=== PATIENT | male | born 1995 | race Caucasian/White ===

== ENCOUNTER 2025-04-27 14:46 | Inpatient (IN) | payer OTHER, SELFPAY ==
--- OUTSIDE RECORDS SUMMARY | 2025-04-25 18:23 | XMS_ITS | Encounter Summary ---
Author Organization Thu Mendoza danial Address [address] [place] [id number] Care Team Providers Care Net Sql Developer Name Role Phone Pharmacy, [facility] & Primary Care Provider Reason for Visit * Reason Comments Behavioral Health * Auth/Cert (Routine) Specialty Diagnoses / Procedures Referred By Contnorm t Referred To Contact Diagnoses Major depressive disorder, single episode, severe with psychotic features Alcohol use, unspecified with withdrawal, unspecified Procedures ADMIT TO OBSERVATION Referral ID Status Reason Start Date Expiration Date Visits Re quested Visits Authorized [id number] 1 1 Encounter Details Date Type Department Care Team (Late st Contact Info) Description 04/25/2025 6:23 PM EST - 04/27/2025 1:18 PM EST Hospital Encounter [facility] Emergency Department [address] [place] [address] Vlad Ramsay MD [address] [facility], [address] [place] [id number] Deng Brown MD [address] [place] [address] Elaina Jaimes MD [facility], [address] [place] [id number] Darin Banks MD [address] [place] [address] eDng Newman MD [address] [place] [address] Stevan Aguayo MD [address] [place] [address] Solomon Rizo MD [address] [place] [address] Current severe episode of major depressive disorder with psychotic features without prior episode ([facility]) [F32.3] (Primary Dx); Alcohol use, unspecified with withdrawal, unspecified ([facility]) [F10.939]; Depression, unspecified depression type Discharge Disposition: Admitted as an Inpatient Social History Tobacco Use Types Packs/Day Years Used Date Smoking Tobacco: Every Day Cigarettes Alcohol Use Standard Drinks/Week Comments Yes 0 (1 standard drink = 0.6 oz pur e alcohol) 1 gallon vodka/day [facility] Utilities Answer Date Recorded In the past 12 months has th e [employer], gas, oil, or water [employer] threatened to shut off services in your home? No 05/12/2024 Humiliation, Afraid, Rape, and Kick questionnair e Answer Date Recorded Within the last year, have y ou been afraid of your partner or ex-partner? No 05/12/2024 Emotionally Abused Not on file 05/12/2024 Physically Abused Not on file 05/12/2024 Sexually Abused Not on file 05/12/2024 Overall Financial Resource Strain (CARDIA) Answe r Date Recorded How hard is it for you to pa y for the very basics like food, housing, medical care, and heating? Somewhat hard 05/12/2024 Hunger Vital Sign Answer Date Recorded Within the past 12 months, y ou worried that your food would run out before you got the money to buy more. Never true 05/12/20 24 Ran Out of Food in the Last Year Not on file 05/12/2024 PRAPARE - Transportation Answer Date Re corded In the past 12 months, has l ack of transportation kept you from medical appointments or from getting medications? No 04/24 In the past 12 months, has l ack of transportation kept you from meetings, work, or from getting things needed for daily living? No 05/12/2024 Housing Stability Vital Sign Answer Holger e Recorded In the last 12 months, was t here a time when you were not able to pay the mortgage or rent on time? No 05/12/2024 Number of Times Moved in the Last Year Not on fi le 05/12/2024 At any time in the past 12 m [facility], were you homeless or living in a alf (including now)? No 05/12/2024 Food Insecurity Answer Date Recorded Within the past 12 months, y ou worried that your food would run out before you got the money to buy more. Never true 05/12/20 24 Ran Out of Food in the Last Year Not on file 05/12/2024 Intimate Partner Violence Answer Date R ecorded Emotionally Abused Not on file 05/12/2024 Within the last year, have y ou been afraid of your partner or ex-partner? No 05/12/2024 Physically Abused Not on file 05/12/2024 Sexually Abused Not on file 05/12/2024 Housing Stability Answer Date Recorded Unstable Housing in the Last Year Not on file 05/12/2024 In the last 12 months, was t here a time when you were not able to pay the mortgage or rent on time? No 05/12/2024 [address] Lived in the Last Year Not on f ile 05/12/2024 AUDIT C Answer Date Recorded How often have you had a dri nk containing alcohol, in the past year? 4 04/26/2025 How many standard drinks con taining alcohol have you had on a typical day when you are drinking, in the past year? 4 1 06/26/2024 How often have you had six o r more drinks on one occasion, in the past year? 4 04/26/2025 Sex and Gender Information Value Date Recorded Sex Assigned at Male 04/21/2024 7:04 PM EDT Legal Sex Male 1:59 AM EST Gender Identity Male 07/23/2023 1:59 AM EST Sexual Orientation Not on file Occupation Industry Job Start Date Job End Date Unemployed Not on file Not on file Not on file documented as of this encounter Last Filed Vital Signs Vital Sign Reading Time Taken Comments Blood Pressure 125/74 04/27/2025 12:32 PM EST Pulse 73 04/27/2025 12:32 PM EST Temperature 36.5 C (97.7 F) 04/27/2025 12:32 PM EST Respiratory Rate 18 04/27/2025 12:32 PM EST Oxygen Saturation 99% 04/27/2025 12:32 PM EST Inhaled Oxygen Concentration - - Weight - - Height - - Body Mass Index - - documented in this encounter Functional Status * Are you deaf or do you have serious difficulty hearing? Answer Date of Assessment Author No 04/25/2025 6:13 PM EST Strauss, Gis el * Are you blind or do you have serious difficulty seeing, even when wearing glasses? Answer Date of Assessment Author No 04/25/2025 6:13 PM EST Strauss, Gis el * Do you have serious difficulty walking or climbing stairs? Answer Date of Assessment Author No 04/25/2025 6:13 PM EST Staruss, Gis el * Do you have difficulty dressing or bathing? Answer Date of Assessment Author No 04/25/2025 6:13 PM EST Strauss, Gis el * Because of a physical, mental, or emotional condition, do you have difficulty doing errands alone such as visiting the doctor? Answer Date of Assessment Author No 04/25/2025 6:13 PM EST Strauss, Gis el documented as of this encounter Mental Status * Because of a physical, mental, or emotional condition, do you have serious difficulty concentrating, remembering, or making decisions? Answer Entry Date Author No 04/25/2025 6:13 PM EST Strauss, Gis el documented in this encounter Medications at Time of Discharge baclofen (LIORESAL) 10 MG tablet 10 MG PO BID 02/23/2024 cloNIDine (CATAPRES) 0.2 MG tablet 0.2 MG PO PRN PRN Agitation 02/23/2024 levETIRAcetam (KEPPRA) 500 MG tablet 500 MG PO BID 02/23/2024 LORazepam (ATIVAN) 1 MG tablet Take 1 tablet (1 mg total) by mouth every 8 hours as needed for anxiety. 03/22/2025 nicotine (NICODERM CQ) 21 mg/[address] 1 patch on the skin in the morning. 03/03/2024 nicotine polacrilex (NICORETTE) 2 mg gum Apply 1 each (2 mg total) to the mouth or throat as needed for smoking cessation. 04/16/2024 OXcarbazepine (TRILEPTAL) 300 MG tablet Take 1 tablet (300 mg total) by mouth in the morning and 1 tablet (300 mg total) before bedtime. TAKE 1 TAB TWICE A DAY FOR SEIZURE. 04/27/2024 PARoxetine (PAXIL) 10 MG tablet Take 3 tablets (30 mg total) by mouth every morning. 04/10/2025 QUEtiapine (SEROquel) 100 MG tablet 100 MG PO TID 02/23/2024 QUEtiapine (SEROquel) 400 MG tablet 400 MG PO QHS 02/23/2024 SUMAtriptan (IMITREX) 50 MG tablet Take 1 tablet (50 mg total) by mouth as needed in the morning and 1 tablet (50 mg total) as needed in the evening. 03/03/2024 topiramate (TOPAMAX) 25 MG capsule Take 1 capsule (25 mg total) by mouth in the morning and 1 capsule (25 mg total) before bedtime. amitriptyline (ELAVIL) 10 mg tablet Take 1 tablet (10 mg total) by mouth at bedtime. amoxicillin (AMOXIL) 500 MG capsule Take 1 capsule (500 mg total) by mouth in the morning and 1 capsule (500 mg total) in the evening and 1 capsule (500 mg total) before bedtime. chlorhexidine (PERIDEX) 0.12 % solution Apply 15 mL to the mouth or throat. TAKE 15 MLS MUCOUS MEMBRANE TWICE A DAY FOR DENTAL PAIN (DO NOT SWALLOW) 04/21/2024 clonazePAM (KlonoPIN) 1 MG tablet 04/15/2024 gabapentin (NEURONTIN) 400 MG capsule 400 MG PO TID 02/23/2024 metoprolol ER (TOPROL-XL) 50 MG 24 hr tablet Take 1 tablet (50 mg total) by mouth in the morning. 03/23/2024 metroNIDAZOLE (FLAGYL) 500 MG tablet Take 1 tablet (500 mg total) by mouth 3 times a day. 03/03/2024 naproxen (EC NAPROSYN) 500 MG EC tablet Take 1 tablet (500 mg total) by mouth 2 times a day with breakfast & dinner. 20 tablet 04/25/2024 oxyCODONE (ROXICODONE) 10 MG Tab Take 1 tablet (10 mg total) by mouth. TAKE 2 TABLETS (20 MG TOTAL) BY MOUTH EVERY 4 (FOUR) HOURS NEEDED. PARTIAL FILL OK 04/24/2024 sulfamethoxazole -trimethoprim (BACTRIM DS) 800-160 mg per tablet Take 1 tablet (160 mg of trimethoprim total) by mouth every morning & every evening. TAKE 1 TABLET BY MOUTH TWICE A DAY FOR 6 DAYS ORAL INFECTION 02/05/2024 traMADoL (ULTRAM) 50 mg tablet Take 1 tablet (50 mg total) by mouth. TAKE 1 TABLET BY MOUTH THREE TIMES A DAY NEEDED FOR PAIN FOR SEVERE TOOTH PAIN 02/07/2024 traZODone (DESYREL) 50 MG tablet Take 1 tablet (50 mg total) by mouth at bedtime. documented as of this encounter Progress Notes * Nicholas Grant - 04/27/2025 12:05 PM EST SOCIAL WORK - BRIEF INTERVENTION NOTE START Assessment - Alcohol Use Disorder Patient: Bimal Lobo : 1995 Age: 29 y.o. Gender: male Relationship status: unknown Income Source: Insurance: Payor: [employer] / Plan[place] / Product Type: Other / Income or financial concerns: Location: Al ed Admit Date: 04/25/2025 Inpatient Status Admit Date: N/A Referral Information Primary Language: Albanian [22] Reason for Admission/Visit: psych evaluation Date of Visit: 04/25/2025 Advanced Directives: Patient Contacts Name Legal Rel Relationship Phone Active @ADVDIR@ DIAGNOSIS: Diagnosis: MH with PSUD Other Relevant Medical Concerns: N/A CASE SUMMARY/UPDATE: Patient referred to cross country/track and field coach by DINESH. Patient has a history of PSUD and is currently on a section 12 awaiting placement. Grinding And Polishing Laborer met with patient to discuss current situation and how they could help in the future. Patient open to being connected to [facility] after inpatient. Patient open to continuum of care by pairing sober living with PHP/IOP after CSS stay. Patient has coaches contact po [facility] advocate to help with continuum of care options post discharge. IDENTIFIED NEEDS AND INTERVENTIONS: Identified Needs Interventions 1 Homeless [place] CSS/sober living 2 MH/PSUD PHP/IOP 3 4 5 Assessment data obtained from: patrient and patient chart Patient received a brief intervention prior to discharge with the following elements: Feedback concerning the quantity and frequency of the patient's alcohol consumption compared to national norms A discussion about the negative physical, emotional and occupational consequences A discussion of the overall severity of the problem Low risk drinking equals: Women (and men over 65): No more than 3 drinks on any single day and no more than 7 drinks/week Men under 65 years: No more than 4 drinks on any single day and no more than 14 drinks/week Patient's response to the brief intervention: Accepting referrals to treatment Referral to Treatment: Andrey Messer Referral(s) made prior to discharge for group counseling, individual counseling, or appointment with personal physician, psychiatrist, psychologist, addiction counselor to: Patient to follow up with this lead technical writer for continuum of care options (Nicholas YARBROUGH [phone]) or (Balwinder Thomas [phone]). Cosigned by Marion Munoz [facility] at 04/27/2025 1:07 PM EST * Wes Velazco - 04/27/2025 10:49 AM EST Behavioral Health Crisis Consult- Contact Note Patient: Bimal Lobo : 1995 Admit Date: 04/25/2025 Date of Consult: 04/27/2025 Time of Consult: 10:49 AM Narrative: Patient: Bimal Lobo Accepting Facility: [facility] Accepting Facility Address: [address] [place] [address] Accepting MD: Dr Stevan Bennett Arrival Time: 2pm arrival Nurse to Nurse Report: they are calling for N2N Other Labs or Needs: N/A HCP/Guardian (if applicable): N/A Reason for Section 12: SI Information Given To: Via secure chat * Rachel Todd - 04/26/2025 10:04 AM EST Behavioral Health Crisis Consult - Follow Up Patient: Bimal Lobo : 1995 Admit Date: 04/25/2025 Date of Consult: 04/26/2025 Time of Consult: 10:04 AM CC: Chief Complaint Patient presents with Behavioral Health Chart Reviewed, case discussed with team and staff. Patient reports I have a lot going on Updates: Psych consult outcome/psych medications: Pt required IM medication on 04/25 2mg ativan 7:21pm and 5mg haldol 8:33pm Collateral Contact: Yes Medical/Psychiatric/Substance/Social/Family History: Histories from previous consult note of 04/25 remain unchanged, except as note in HPI. Current Medications: Scheduled Medications[1] Current PRN: PRN Medications[2] Allergies: Patient has no known allergies. Physical Exam: Patient Vitals for the past 24 hrs: BP Temp Temp src Pulse Resp SpO2 04/26/25 0847 130/77 97.9 ??F (36.6 ??C) -- 79 -- -- 04/26/25 0845 130/77 97.9 ??F (36.6 ??C) Oral 79 18 98 % 04/26/25 0607 138/72 97.3 ??F (36.3 ??C) Temporal 51 16 98 % 04/25/25 2320 129/68 97.7 ??F (36.5 ??C) Temporal 89 16 95 % Mental Status Exam: Mental Status Exam General Appearance: Appears stated age and well-developed. Disheveled and moderate distress. Level of Consciousness: Alert. Orientation: Oriented to person, place, time and situation. Attitude and Behavior: Guarded. Eye Contact: Eye contact intermittent. Psychomotor Activity: Restless. Speech: Normal rate, volume, rhythm and coherence. Language: Normal. Mood: Patient description of mood: bad. Affect: Flat. Thought Process and Associations: Linear and logical. Thought Content: Positive for suicidal ideation. No self-injurious ideation, no homicidal ideation and not actively hallucinating. No delusions and no paranoia. Attention Span: Appropriate. Memory: Grossly intact. Fund of Knowledge: Normal. Cognition: Normal. Insight: Poor. Minimizing present. Judgment: Poor and resists help despite evidence of mental illness. Labs, Imaging & Other Studies: Laboratory: Recent lab results have been reviewed and are notable for Results for orders placed or performed during the hospital encounter of 04/25/25 (from the past 24 hours) Basic Metabolic Panel Result Value Ref Range Sodium 141 136 - 145 mmol/L Potassium 3.9 3.5 - 5.4 mmol/L Chloride 108 (H) 98 - 107 mmol/L Total CO2/Bicarbonate 19 (L) 22 - 32 mmol/L Anion Gap BUN 12 6 - 20 mg/dL Creatinine, Blood 0.96 0.70 - 1.20 mg/dL Glucose, Blood 97 70 - 115 mg/dL Calcium 8.6 8.5 - 10.6 mg/dL Estimated GFR(CKD-EPI) 110 mL/min/BSA Plasma Toxicology Screen Result Value Ref Range Acetaminophen Result,Blood <15 <30 ug/mL Alcohol 90 (H) <10 mg/dL Salicylate Level, Blood <1 (L) 3 - 20 mg/dL CBC and Differential Result Value Ref Range WBC 11.59 (H) 4.00 - 10.00 K/uL RBC 4.61 4.60 - 6.10 M/uL Hemoglobin 14.6 13.7 - 17.5 g/dL Hematocrit 41.8 40.0 - 51.0 % MCH 31.7 26.0 - 32.0 pg MCHC 34.9 30.5 - 35.8 g/dL MCV 91 82 - 98 fL RDW 12.0 10.5 - 15.5 % RDW-SD 39.8 35.1 - 46.3 fL Platelet Count 296 150 - 400 K/uL MPV 8.6 8.3 - 12.4 fL Neutrophil 73.1 (H) 34.0 - 71.0 % Lymphocyte 17.4 (L) 19.0 - 53.0 % Monocyte 7.9 5.0 - 13.0 % Eosinophil 0.7 (L) 1.0 - 7.0 % Basophil 0.3 0.0 - 1.0 % Immature Granulocyte ([place], Myelo, Promyelocyte) 0.6 0.0 - 2.0 % Absolute Neutrophil Count 8.48 (H) 1.60 - 6.10 K/uL Absolute Immature Granulocyte ([place], Myelo, Promyelocyte) 0.07 0.00 - 0.80 K/uL Absolute Lymphocyte Count 2.02 1.20 - 3.70 K/uL Absolute Monocyte Count 0.91 (H) 0.20 - 0.80 K/uL Absolute Eosinophil Count 0.08 0.04 - 0.54 K/uL Absolute Basophil Count 0.03 0.01 - 0.08 K/uL Drug Screen, Urine Result Value Ref Range Amphetamines Screen, Urine Not Detected Not Detected Barbiturates Screen, Urine Not Detected Not Detected Benzodiazepine Screen, Urine Detected (A) Not Detected Cannabinoids Screen, Urine Detected (A) Not Detected Cocaine Metabolite Screen, Urine Detected (A) Not Detected MDMA Urine Not Detected Not Detected Opiates Screen, Urine Not Detected Not Detected Oxycodone Screen, Urine Not Detected Not Detected Phencyclidine Screen, Urine Not Detected Not Detected Propoxyphene Screen, Urine Not Detected Not Detected Tricyclics Screen Not Detected Not Detected Drug Screen QC Acceptable Acceptable EKG: No studies were reviewed. C-SSRS: [place] Suicide Severity Rating Scale (C-SSRS) Since Last Contact Screener 1) Have you wished you were or wished you could go to sleep and not wake up? (Since Last Contact): Yes 2) Have you actually had any thoughts about killing yourself? (Since Last Contact): Yes 3) Have you been thinking about how you might do this? (Since Last Contact): Yes 4) Have you had these thoughts and had some intention of acting on them? (Since Last Contact): No 5) Have you started to work out or worked out the details of how to kill yourself? Did you intend to carry out this plan? (Since Last Contact): No 6) Have you done anything, started to do anything, or prepared to do anything to end your life? (Since Last Contact): No 6b.) If 'Yes', was it within the past 3 months?: No C-SSRS Risk Level (Since Last Contact Screener): Moderate Risk (04/26/25 0958 : Rachel Todd) Assessment: Patient is a 29 y.o. male with past medical and psychiatric history as above now presents with behavioral control this morning, agreeable to inpatient level of care. Yesterday pt exhibited episode ofescalation around 7:00pm, reports he was trying to go to the bathroom to which security asked him where he was going. Reports he became frustrated with security challenging him about wether he could leave. He reports ongoing suicidal ideation at this time, reports he feels safe in the hospital and has not acted on this. He reports this has been ongoing for the past couple weeks. States it exacerbated yesterday when he left his Mother's home. He reports taking more than prescribed klonopin last night prior to arrival to try to help deal with my withdrawal . He reports his last drink was last night. Pt is currently on CIWA, accepted PO valium 5mg for withdrawal symptoms. The patient is guarded with history, per chart review history of inpatient admissions, detox admissions, suicidal ideation and alcohol use. Pt with history of polysubstance use - marijuana, crack/cocaine. . Pt notes stressors including that he is homeless, his Mother is ill and is estranged from other social supports in his life. Pt reports history of trauma- stating that he witnessed his Mother using substances throughout her life and is now ill. Pt also reports family hx of mental health/substance use and overdose. The patient is unable or unwilling to engage in safety planning at this time. He is focused on helplessness related to physical symptoms and feels unable to continue speaking with this lead technical writer. Pt agreeable to speak with staff if he needs something to prevent further restraint/ dysregulation, Recommendations: Pt continues to meet criteria for Section 12/IPLOC for further safety, stabilization, medication management and step down planning. Requested LOC: IPLOC / Section 12 Barriers to placement/Specialty Placement Required: restraint/ IM 04/25 7pm Disposition Recommendation: Inpatient Level of Care Behavioral Health Diagnosis: F32.9 MDD; F10.10 Alcohol Use Disorder Duration: Time Spent (min): 60 Case d/w: Kaykay Velazquez RN Signed by: Rachel Todd [1] [2] * Rachel Tran - 04/26/2025 6:40 AM EST Bed Search Inpatient Unit Referral Date Referral Time Began Review Date Began Review Time Accepted Date Accepted Time Decline Date Decline Time Reason If Decline Comment [facility] Accessible 04/26/25 6:41 AM [facility] Accessible 04/26/25 6:41 AM EST [facility] 04/26/25 6:41 AM EST [facility] Accessible 04/26/25 6:41 AM EST [facility] 04/26/25 6:41 AM EST [place] [id number] 04/26/25 6:41 AM EST [facility] Accessible 04/26/25 6:41 AM EST [facility] Accessible 04/26/25 6:42 AM EST [facility] Accessible 04/26/25 6:42 AM EST [facility] Accessible 04/26/25 6:42 AM EST [facility] Accessible 04/26/25 6:42 AM EST [facility] 04/26/25 6:42 AM EST [facility] Accessible 04/26/25 6:42 AM EST [facility] 04/26/25 6:42 AM EST documented in this encounter Consult Notes * Sharon Harrison [facility] - 04/26/2025 1:20 AM EST Behavioral Health Crisis Consult - Initial Assessment Patient: Bimal Ramos HariAmosSusana : 1995 Admit Date: 04/25/2025 Date of Consult: 04/26/2025 Time of Consult: 1:20am Consult Requested by: Deng Brown MD Reason for Consult: Reason for Consult: Pt. mary presented to the ED. He is endorsing SI. Chief Complaint Patient presents with Behavioral Health History of Present Illness: Patient is a 29 y.o. male with past medical and psychiatric history as listed who presented to the hospital on 04/25/2025 for Behavioral Health. Behavioral Health is consulted for erratic\ behaviors and SI The patient is known to the ED and has a significant mental health history. Medical History: has a past medical history of Anxiety, Depression, and ETOH abuse. has no past surgical history on file. Psychiatric History: History of psychiatric illness?: Yes History of suicidal ideation?: Yes History of non-suicidal self injury?: Yes History of interpersonal aggression?: Yes History of past DAVONTE?: Yes Treatment History?: Yes Inpatient Treatment:: Inpatient Psych Outpatient Treatment:: Outpatient Psychopharm Current Providers?: Yes Provider Type:: Therapist Collateral Contact: Yes Home Medications: Prescriptions Prior to Admission[1] Current Medications: Scheduled Medications[2] Current PRN: PRN Medications[3] Allergies: Patient has no known allergies. Substance Use History Alcohol: Substance and Sexual Activity Alcohol Use Yes Comment: 1 gallon vodka/day Tobacco: reports that he has been smoking cigarettes. He does not have any smokeless tobacco history on file. Other: reports current drug use. Drugs: Marijuana and Cocaine. Addiction/Substance Use Substances last used: Within past 12 months In the past year, have you ever used drugs more than you wanted to?: Yes Prior treatment for addiction/substance use?: Yes Prescription Medications: Substances: Medical and Psychiatric Consequences: Psychosocial Consequences: Social History: Socioeconomic History Marital status: Unknown Number of children: 1 Occupational History Occupation: Unemployed Social History Narrative Pt. Is homeless and unemployed. Employment Status: Data Unavailable Type of Residence: Homeless Children?: Yes Number of Children: 1 Legal Issues (*Add to Legal History Navigator): History of incarceration History: History status: No Personal History: History of trauma/significant life events/JESÚS?: Yes reports being sexually active and has had partner(s) who are female. Family History: Family History[4] Family history of psychiatric illness?: Yes Family history of DAVONTE?: Yes Family history of suicidal ideation, attempt or completed suicide?: Yes Physical Exam: Patient Vitals for the past 24 hrs: BP Temp Temp src Pulse Resp SpO2 04/25/25 2320 129/68 97.7 ??F (36.5 ??C) Temporal 89 16 95 % Mental Status Exam: Mental Status Exam General Appearance: Appears stated age and well-developed. Disheveled and mild distress. Level of Consciousness: Lethargic. Orientation: Unable to assess. Attitude and Behavior: Guarded. Eye Contact: Eye contact intermittent. Psychomotor Activity: Normal. Language: Unable to assess. Mood: Patient description of mood: Anxious. Affect: Flat. Thought Process and Associations: Illogical. Circumstantial. Thought Content: Positive for suicidal ideation, suicidal plan, suicidal intent, suicidal means, positive for self-injurious ideation, self-injurious intent, self-injurious means, positive for homicidal ideation and actively hallucinating. No homicidal intent and no homicidal means. Attention Span: Distracted. Memory: Impaired recall. Fund of Knowledge: Unable to assess. Cognition: Unable to assess. Insight: Unable to assess. Judgment: Unable to assess. Labs, Imaging & Other Studies: Laboratory: Recent lab results have been reviewed and are notable for Results for orders placed or performed during the hospital encounter of 04/25/25 (from the past 24 hours) Basic Metabolic Panel Result Value Ref Range Sodium 141 136 - 145 mmol/L Potassium 3.9 3.5 - 5.4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 administration. 1555 (Patch Applied - Provider: Eyal Yepez RN) 1318 (Due: Patch Removed - Provider: Automatic Discharge Provider - Comment: Time automatically adjusted from order being discontinued) nicotine polacrilex (NICORETTE) gum 4 mg (COMPLETED) 4 mg, Buccal, Once, 1 dose, On Sat04/26/25 at 1943 2000 (Given - Provider: Kiah Conner RN) OLANZapine (ZyPREXA) tablet 5 mg (COMPLETED) 5 mg, Oral, Once, 1 dose, On Sat04/25/25 at 1918 1921 (Given - Provider: Meenakshi De Oliveira RN) ondansetron (ZOFRAN-ODT) disintegrating tablet 4 mg (COMPLETED) 4 mg, Oral, Once, 1 dose, On Sat04/26/25 at 1120 1123 (Given - Provider: Kiah Conner RN) OXcarbazepine (TRILEPTAL) tablet 300 mg 300 mg, Oral, 2 times daily, First dose on Sat04/26/25 at 2100, Until Discontinued 2027 (Given - Provider: Kiah Conner RN) 08 (Given - Provider: Sandra Holt, ABRAHAN) PARoxetine (PAXIL) tablet 30 mg 30 mg, Oral, Every morning, First dose on Sat04/26/25 at 1851, Until Discontinued 1911 (Not Given - Provider: Kiah Conner RN - Reason: Order parameters not met - Comment: AM med) 08 (Given - Provider: Sandra Holt, ABRAHAN) QUEtiapine (SEROquel) tablet 100 mg 100 mg, Oral, Daily, First dose (after last reorder) on Sat04/27/25 at 0900, Until Discontinued 820 (Given - Provider: Sandra Holt, ABRAHAN) QUEtiapine (SEROquel) tablet 400 mg 400 mg, Oral, At bedtime, First dose on Sat04/26/25 at 2100, Until Discontinued 2025 (Given - Provider: Kiah Conner RN) thiamine tablet 500 mg (COMPLETED) 500 mg, Oral, Once, 1 dose, On Sat04/26/25 at 2003 2025 (Given - Provider: Kiah Conner RN) PRN Medication Order 04/25/2025 04/26/2025 04/27/2025 diazePAM (VALIUM) tablet 10 mg(Linked Group 1) 10 mg, Oral, Every 2 hour PRN, Starting on Sat04/26/25 at 1849, Until Sat04/27/25 at 0048, CIWA > 10, Do not give if lethargic, SBP less than 90, MAP less than or equal to 65, or RR less than 10. 2227 (Given - Provider: Kiah Conner RN) 0056 (Not Given - Provider: Emily Mcknight RN - Reason: Per provider order - Comment: PRN 2 hr order and pt not in parameters for next dose, med not given and returned to red zone return box) diazePAM (VALIUM) tablet 10 mg(Linked Group 1) 10 mg, Oral, Every 4 hours PRN, Starting on Sat04/27/25 at 0049, Until Sat04/27/25 at 1518, CIWA > 10, Do not give if lethargic, SBP less than 90, MAP less than or equal to 65, or RR less than 10. 0411 (Given - Provid er: Emily Mcknight RN)0821 (Given - Provider: Sandra Holt, ABRAHAN)1231 (Given - Provider: Geovany Crane, ABRAHAN) nicotine polacrilex (NICORETTE) gum 4 mg 4 mg, Buccal, Every 1 hour PRN, Starting on Sat04/27/25 at 0042, Until Sat04/27/25 at 1518, smoking cessation 0051 (Given - Provid er: Emily Mcknight RN - Comment: Pt only wanted 1 piece of gum at this time)0415 (Given - Provider: Emily Mcknight RN)0822 (Given - Provider: Sandra Holt, RN)1132 (Given - Provider: Lianet Sher RN) Linked Groups Order Group 1: diazePAM (VALIUM) tablet 10 mgJump to med 10 mg, Oral, Every 2 hour PRN, Starting on Sat04/26/25 at 1849, Until Sat04/27/25 at 0048, CIWA > 10, Do not give if lethargic, SBP less than 90, MAP less than or equal to 65, or RR less than 10. Followed by diazePAM (VALIUM) tablet 10 mgJump to med 10 mg, Oral, Every 4 hours PRN, Starting on Sat04/27/25 at 0049, Until Sat04/27/25 at 1518, CIWA > 10, Do not give if lethargic, SBP less than 90, MAP less than or equal to 65, or RR less than 10. documented in this encounter Care Teams Net Sql Developer Relationship Specialty Start Date End Date Pharmacy, [facility] [address] [place] [address] PCP - General Coordinate Measuring Machine Technician 04/29/24 documented as of this encounter
[2025-04-27 15:25] VITALS: BP 132/92; PULSE 77; RESP 18; TEMP 36.8; O2SAT 100
[2025-04-27] MEDS: Nicotine 21 MG PATCH.TD24 TRANSDERMA (15:33)
[2025-04-27 15:50] VITALS: BMI 29.8
[2025-04-27 17:39] VITALS: BP 137/95; PULSE 101; RESP 18; TEMP 36.9; O2SAT 96
--- OUTSIDE RECORDS SUMMARY | 2025-04-27 17:54 | XMS_ITS | Clinical Summary ---
Author Organization [facility] Address [address] [place] [address] Care Team Providers Care Automatic Spinning Lathe Setter Name Role Phone Pcp, No Primary Care Provider Unavailabl e Allergies No known active allergies Medications escitalopram 20 MG tablet Take 1 tablet (20 mg total) by mouth daily Active levETIRAcetam (KEPPRA) 500 MG tablet Take 1 tablet (500 mg total) by mouth 2 (two) times a day Active QUEtiapine (SEROquel) 300 MG tablet Take 1 tablet (300 mg total) by mouth at bedtime Active cloNIDine (CATAPRES) 0.1 MG tablet Take 1 tablet (0.1 mg total) by mouth every 6 (six) hours as needed Active gabapentin (NEURONTIN) 400 MG capsule Take 1 capsule (400 mg total) by mouth 3 (three) times a day Active lidocaine viscous 2 % oral topical solution Apply 5 mL to the mouth or throat every 4 (four) hours as needed for mouth pain or mouth lesions 100 mL 10/04/2024 Active ibuprofen (ADVIL,MOTRIN) 800 MG tablet Take 1 tablet (800 mg total) by mouth every 8 (eight) hours as needed for mild pain (1-3) or moderate pain (4-6) 30 tablet 10/04/2024 Active Active Problems Problem Noted Date Diagnosed Date Suicidal ideations 04/09/2024 Social History Tobacco Use Types Packs/Day Years Used Date Smoking Tobacco: Every Day Cigarettes Smokeless Tobacco: Never Tobacco Cessation:Ready to Q uit: Not Asked; Counseling Given: Not Answered Sex and Gender Information Value Date Recorded Sex Assigned at Male 04/09/2024 1:46 PM EDT Legal Sex Male 1:13 PM EDT Gender Identity Male 04/09/2024 1:46 PM EDT Sexual Orientation _I choose not to answer 04/09 1:49 PM EDT Last Filed Vital Signs Vital Sign Reading Time Taken Comments Blood Pressure 113/57 11/03/2024 2:06 PM EDT Pulse 81 11/03/2024 2:06 PM EDT Temperature 36.7 C (98 F) 11/03/2024 12:59 PM EDT Respiratory Rate 16 11/03/2024 2:06 PM EDT Oxygen Saturation 99% 11/03/2024 2:06 PM EDT Inhaled Oxygen Concentration - - Weight 98.4 kg (217 lb) 11/03/2024 12:59 PM EDT Height 182.9 cm (6') 11/03/2024 12:59 PM EDT Body Mass Index 29.43 11/03/2024 12:59 PM EDT Plan of Treatment Health Maintenance Due Date Last Done Comments Annual Physical 11/09/1999 Hepatitis B Screening 2014 DTaP,Tdap,and Td Vaccines (1 - Tdap) 11/09/2015 Pneumococcal Vaccines 0-49 y rs (includes High Risk) (1 of 2 - PCV) 11/09/2015 COVID-19 Vaccine (1 - 2023-2 5 season) 2025 Influenza Vaccine (#1) 2025 HIB Vaccines Aged Out No longer eligi ble based on patient's age to complete this topic Hepatitis A Vaccine Aged Out No longe r eligible based on patient's age to complete this topic Insurance MEDICAID PCP PLAN Care Teams Automatic Spinning Lathe Setter Relationship Specialty [place] [id number] PCP - General 04/09/24
--- OUTSIDE RECORDS SUMMARY | 2025-04-27 17:54 | XMS_ITS | Encounter Summary ---
Author Organization [facility] Address [address] [place] [address] Care Team Providers Care Warp Hand Name Role Phone None, Pcp Primary Care Provider [facility], [facility][Note 3] & Primary Care Provider Encounter Details Date Type Department Care Team (Late st Contact Info) Description 04/22/2024 Documentation [facility] Social Work [address] [place] [address] Worker, Social, [facility] [address] [place] [address] Social History Tobacco Use Types Packs/Day Years Used Date Smoking Tobacco: Every Day Cigarettes Alcohol Use Standard Drinks/Week Comments Yes 0 (1 standard drink = 0.6 oz pur e alcohol) 1 gallon vodka/day AUDIT C Answer Date Recorded How often have you had a dri nk containing alcohol, in the past year? 4 04/22/2024 How many standard drinks con taining alcohol have you had on a typical day when you are drinking, in the past year? 4 1 How often have you had six o r more drinks on one occasion, in the past year? 3 04/22/2024 Sex and Gender Information Value Date Recorded Sex Assigned at Male 04/21/2024 7:04 PM EDT Legal Sex Male 1:59 AM EST Gender Identity Male 07/23/2023 1:59 AM EST Sexual Orientation Not on file documented as of this encounter Functional Status * Are you deaf or do you have serious difficulty hearing? Answer Date of Assessment Author No 04/21/2024 7:05 PM EDT Karel Akbar * Are you blind or do you have serious difficulty seeing, even when wearing glasses? Answer Date of Assessment Author No 04/21/2024 7:05 PM EDT Karel Akbar * Do you have serious difficulty walking or climbing stairs? Answer Date of Assessment Author No 04/21/2024 7:05 PM Karel Archibald * Do you have difficulty dressing or bathing? Answer Date of Assessment Author No 04/21/2024 7:05 PM Karel Archibald * Because of a physical, mental, or emotional condition, do you have difficulty doing errands alone such as visiting the doctor? Answer Date of Assessment Author No 04/21/2024 7:05 PM Karel Archibald documented as of this encounter Mental Status * Because of a physical, mental, or emotional condition, do you have serious difficulty concentrating, remembering, or making decisions? Answer Entry Date Author No 04/21/2024 7:05 PM Karel Archibald documented in this encounter Plan of Treatment Not on file documented as of this encounter Visit Diagnoses Not on filedocumented in this encounter Care Teams Warp Hand Relationship Specialty Start Date End Date None, Pcp, PCP - General 04/21/23 04/28/24 Pharmacy, [facility]Note 3[facility] & [facility]Note 3[facility] [address] [place] [address] PCP - General Assurance Engineer 04/29/24 documented as of this encounter
--- OUTSIDE RECORDS SUMMARY | 2025-04-27 17:54 | XMS_ITS | Encounter Summary ---
Author Organization [facility] Address [address] [place] [address] Care Team Providers Care Aeronautical Test Engineer Name Role Phone Pharmacy, [facility] & Primary Care Provider Encounter Details Date Type Department Care Team (Latest Contact Info) Description 04/26/2025 Travel Social History Tobacco Use Types Packs/Day Years Used Date Smoking Tobacco: Every Day Cigarettes Alcohol Use Standard Drinks/Week Comments Yes 0 (1 standard drink = 0.6 oz pur e alcohol) 1 gallon vodka/day [facility] Utilities Answer Date Recorded In the past 12 months has th e [employer], gas, oil, or water company threatened to shut off services in your [...] any time in the past 12 m [facility], were you homeless or living in a [facility] (including now)? No 05/12/2024 Food Insecurity Answer [...] Strauss, Gis el * Do you have difficulty [...] Strauss, Gis el documented in this encounter Plan of Treatment Not on file documented as of this encounter Visit Diagnoses Not on filedocumented in this encounter Care Teams Aeronautical Test Engineer Relationship Specialty Start Date End Date Pharmacy, [facility] [address] [place] [address] PCP - General Data Compiler 04/29/24 documented as of this encounter
--- OUTSIDE RECORDS SUMMARY | 2025-04-27 17:54 | XMS_ITS | Encounter Summary ---
Author Organization [facility] Address [address] [place] [id number] Care Team Providers Care Hydrogen Power Plant Engineer Name Role Phone None, Pcp Primary Care Provider [facility], [facility] & Primary Care Provider Reason for Visit * Reason Onset Date Comments Alcohol Problem 04/22/2024 Pt was referred by [facility]. Hx of DAVONTE (Etoh). Pt was looking for a detox bed. After [facility] did an extensive bed search, he was placed at [facility]. Encounter Details Date Type Department Care Team (Late st Contact Info) Description 04/23/2024 Documentation [facility] Social Work [address] [place] [address] Worker, Social, [place] [phone] Alcohol Problem (Pt was referred by [facility]. Hx of DAVONTE (Etoh). Pt was looking for a detox bed. After [facility] did an extensive bed search, he was placed at [facility].) Social History Tobacco Use Types Packs/Day Years [...] EDT Karel Akbar * Do you have difficulty dressing or bathing? Answer Date of Assessment Author No 04/21/2024 7:05 PM EDT Karel Akbar * Because of a physical, mental, or emotional condition, do you have difficulty doing errands alone such as visiting the doctor? Answer Date of Assessment Author No 04/21/2024 7:05 PM EDT Karel Akbar documented as of this encounter Mental Status * Because of a physical, mental, or emotional condition, do you have serious difficulty concentrating, remembering, or making decisions? Answer Entry Date Author No 04/21/2024 7:05 PM EDT Karel Akbar documented in this encounter Progress Notes * Rowena Peoples LCSW - 04/23/2024 6:47 AM EDT Pt was referred by [facility]. Hx of DAVONTE (Etoh). Pt was looking for detox. After an extensive bed search ptwas placed at [facility]. Cosigned by DEONNA Foreman at 04/29/2024 11:05 AM EST documented in this encounter Plan of Treatment Not on file documented as of this encounter Visit Diagnoses Not on filedocumented in this encounter Care Teams Hydrogen Power Plant Engineer Relationship Specialty Start Date End Date None, PcpMD PCP - General 04/21/23 04/28/24 Pharmacy, [facility] & [facility] [address] [place] [address] PCP - General Home Extension Agent 04/29/24 documented as of this encounter
--- OUTSIDE RECORDS SUMMARY | 2025-04-27 17:54 | XMS_ITS | Clinical Summary ---
Author Organization Thumarcela Mendoza danial Address [address] [place] [id number] Care Team Providers Care Slip Cover Maker Name Role Phone Pharmacy, [facility] Provider Allergies No known active allergies Medications * This document contains information received from the source organization and may not represent a complete record from that organization. QUEtiapine (SEROquel) 400 MG tablet 400 MG PO QHS 4 Active baclofen (LIORESAL) 10 MG tablet 10 MG PO BID 4 Active Additional Information Patient taking differently:10 mg Oral3 times daily, Morning, Evening, Bedtime, Reported on 04/25/2025 gabapentin (NEURONTIN) 400 MG capsule 400 MG PO TID 4 Active levETIRAcetam (KEPPRA) 500 MG tablet 500 MG PO BID 4 Active cloNIDine (CATAPRES) 0.2 MG tablet 0.2 MG PO PRN PRN Agitation 4 Active Additional Information Patient taking differently: 0.1 mgOral3 times daily, Morning, Evening, Bedtime, Reported on 04/25/2025 QUEtiapine (SEROquel) 100 MG tablet 100 MG PO TID 4 Active clonazePAM (KlonoPIN) 1 MG tablet 4 Active naproxen (EC NAPROSYN) 500 MG EC tablet Take 1 tablet (500 mg total) by mouth 2 times a day with breakfast & dinner. 20 tablet 4 Active Additional Information Patient not taking.Reported on 04/26/2025 amoxicillin (AMOXIL) 500 MG capsule Take 1 capsule (500 mg total) by mouth in the morning and 1 capsule (500 mg total) in the evening and 1 capsule (500 mg total) before bedtime. Active topiramate (TOPAMAX) 25 MG capsule Take 1 capsule (25 mg total) by mouth in the morning and 1 capsule (25 mg total) before bedtime. Active chlorhexidine (PERIDEX) 0.12 % solution Apply 15 mL to the mouth or throat. TAKE 15 MLS MUCOUS MEMBRANE TWICE A DAY FOR DENTAL PAIN (DO NOT SWALLOW) 4 Active metoprolol ER (TOPROL-XL) 50 MG 24 hr tablet Take 1 tablet (50 mg total) by mouth in the morning. 4 Active metroNIDAZOLE (FLAGYL) 500 MG tablet Take 1 tablet (500 mg total) by mouth 3 times a day. 4 Active nicotine (NICODERM CQ) 21 mg/[address] 1 patch on the skin in the morning. 4 Active nicotine polacrilex (NICORETTE) 2 mg gum Apply 1 each (2 mg total) to the mouth or throat as needed for smoking cessation. 4 Active OXcarbazepine (TRILEPTAL) 300 MG tablet Take 1 tablet (300 mg total) by mouth in the morning and 1 tablet (300 mg total) before bedtime. TAKE 1 TAB TWICE A DAY FOR SEIZURE. 4 Active oxyCODONE (ROXICODONE) 10 MG Tab Take 1 tablet (10 mg total) by mouth. TAKE 2 TABLETS (20 MG TOTAL) BY MOUTH EVERY 4 (FOUR) HOURS NEEDED. PARTIAL FILL OK 4 Active sulfamethoxazol e-trimethoprim (BACTRIM DS) 800-160 mg per tablet Take 1 tablet (160 mg of trimethoprim total) by mouth every morning & every evening. TAKE 1 TABLET BY MOUTH TWICE A DAY FOR 6 DAYS ORAL INFECTION 4 Active SUMAtriptan (IMITREX) 50 MG tablet Take 1 tablet (50 mg total) by mouth as needed in the morning and 1 tablet (50 mg total) as needed in the evening. 4 Active traMADoL (ULTRAM) 50 mg tablet Take 1 tablet (50 mg total) by mouth. TAKE 1 TABLET BY MOUTH THREE TIMES A DAY NEEDED FOR PAIN FOR SEVERE TOOTH PAIN 4 Active traZODone (DESYREL) 50 MG tablet Take 1 tablet (50 mg total) by mouth at bedtime. Active amitriptyline (ELAVIL) 10 mg tablet Take 1 tablet (10 mg total) by mouth at bedtime. Active LORazepam (ATIVAN) 1 MG tablet Take 1 tablet (1 mg total) by mouth every 8 hours as needed for anxiety. Active PARoxetine (PAXIL) 10 MG tablet Take 3 tablets (30 mg total) by mouth every morning. Active Active Problems Problem Noted Date Diagnosed Date Other psychoactive substance dependence, uncompl icated 04/16/2024 Drug intoxication 04/15/2024 Suicidal ideations 02/23/2024 Major depressive disorder, single episode, unspe cified 01/27/2024 Alcohol use, unspecified with withdrawal, unspec ified 01/25/2024 Family problems 11/16/2022 Food insecurity 11/16/2022 Homeless 11/16/2022 Other specified lack of adequate food 11/16/2022 Unemployed 11/16/2022 Unsatisfactory living conditions 11/16/2022 Encounters Date Type Department Care Team Description 04/26/2025 Travel 04/25/2025 6:23 PM EST - 04/27/2025 1:18 PM EST Hospital Encounter [facility] Emergency Department [address] [place] [address] Vlad Ramsay MD Chiu, MD Fiona Hebert, MD Darren Guillen, MD Paty Webster, MD Olivier Daley, MD Darrius Calles, MD Solomon Current severe episode of major depressive disorder with psychotic features without prior episode ([facility]) [F32.3] (Primary Dx); Alcohol use, unspecified with withdrawal, unspecified ([facility]) [F10.939]; Depression, unspecified depression type Discharge Disposition: Admitted as an Inpatient from Last 3 Months Social History Tobacco Use Types Packs/Day Years Used Date Smoking Tobacco: Every Day Cigarettes Tobacco Cessation:Ready to Q uit: Not Asked; Counseling Given: Not Answered Alcohol Use Standard Drinks/Week Comments Yes 0 (1 standard drink = 0.6 oz pur e alcohol) 1 gallon vodka/day [facility] Utilities Answer Date Recorded In the past 12 months has [employer], [employer], oil, or water [employer] threatened to shut off services in your [...] any time in the past 12 m [facility], were you homeless or living in a [...] file Not on file Not on file Last Filed Vital Signs Vital Sign Reading Time Taken Comments Blood Pressure 125/74 04/27/2025 12:32 PM EST Pulse 73 04/27/2025 12:32 PM EST Temperature 36.5 C (97.7 F) 04/27/2025 12:32 PM EST Respiratory Rate 18 04/27/2025 12:32 PM EST Oxygen Saturation 99% 04/27/2025 12:32 PM EST Inhaled Oxygen Concentration - - Weight 99.8 kg (220 lb) 06/19/2024 2:23 PM EST Height 182.9 cm (6') 06/19/2024 2:23 PM EST Body Mass Index 29.84 06/19/2024 2:23 PM EST Plan of Treatment Health Maintenance Due Date Last Done Comments Depression Screening 2000 Hepatitis C Screening 2014 DTaP,Tdap,and Td Vaccines (1 - Tdap) 11/09/2015 Pneumococcal Vaccine (1 of 2 - PCV) 11/09/2015 COVID-19 Vaccine (1 - 2024-2 6 season) 2025 Influenza Vaccine (#1) 2025 Blood Pressure 04/25/2029 04/27/2025 Meningococcal B Vaccines Aged Out No longer eligible based on patient's age to complete this topic Meningococcal Vaccines Aged Out No lo nger eligible based on patient's age to complete this topic Procedures Procedure Name Priority Date/Time Associated Diagnosis Comments DRUG SCREEN, URINE STAT 04/26/2025 9: 17 AM EST CBC AND DIFFERENTIAL STAT 04/25/2025 11:39 PM EST CBC AND DIFFERENTIAL STAT 04/25/2025 11:39 PM EST TOXICOLOGY SCREEN, BLOOD STAT 04/25/2025 11:39 PM EST BASIC METABOLIC PANEL STAT 04/25/2025 11:39 PM EST ECG 12-LEAD STAT 04/25/2025 11:19 PM EST from Last 3 Months Results * (ABNORMAL) Drug Screen, Urine (04/26/2025 9:17 AM EST) [facility] Amphetamines Screen, Urine Not Detected Not Detected 04/26/2025 9:31 AM [facility] Barbiturates Screen, Urine Not Detected Not Detected 04/26/2025 9:31 AM [facility] Benzodiazepine Screen, Urine Detected(A) Not Detected 04/26/2025 9:31 AM [facility] Cannabinoids Screen, Urine Detected(A) Not Detected 04/26/2025 9:31 AM [facility] Cocaine Metabolite Screen, Urine Detected(A) Not Detected 04/26/2025 9:31 AM [facility] MDMA Urine Not Detected Not Detected 04/26/2025 9:31 AM [facility] Opiates Screen, Urine Not Detected Not Detected 04/26/2025 9:31 AM [facility] Oxycodone Screen, Urine Not Detected Not Detected 04/26/2025 9:31 AM [facility] Phencyclidine Screen, Urine Not Detected Not Detected 04/26/2025 9:31 AM [facility] Propoxyphene Screen, Urine Not Detected Not Detected 04/26/2025 9:31 AM [facility] Tricyclics Screen Not Detected Not Detected 08/2024 9:31 AM [facility] Drug Screen QC Acceptable Acceptable 04/26/2025 9:31 AM [facility] Urine URINE SPECIMEN / Unknown Collection / Unknown 04/26/2025 9:17 AM EST 04/26/2025 9:22 AM [facility] - 04/26/2025 9:31 AM EST Urine [...] Vlad Ramsay MD URINE ORDERABLES Final Result [facility] [address] [place] [address], * (ABNORMAL) CBC and Differential (04/25/2025 11:39 PM EST) WBC 11.59(H) 4.00 - 10.00 K/uL 04/26/2025 12:01 AM [facility] RBC 4.61 4.60 - 6.10 M/uL 04/26/2025 12:01 AM [facility] Hemoglobin 14.6 13.7 - 17.5 g/dL 04/26/2025 12:01 AM [facility] Hematocrit 41.8 40.0 - 51.0 % 04/26/2025 12:01 AM [facility] MCH 31.7 26.0 - 32.0 pg 04/26/2025 12:01 AM [facility] MCHC 34.9 30.5 - 35.8 g/dL 04/26/2025 12:01 AM [facility] MCV 91 82 - 98 fL 04/26/2025 12:01 AM [facility] RDW 12.0 10.5 - 15.5 % 04/26/2025 12:01 AM [facility] RDW-SD 39.8 35.1 - 46.3 fL 04/26/2025 12:01 AM [facility] Platelet Count 296 150 - 400 K/uL 04/26/2025 12:01 AM [facility] MPV 8.6 8.3 - 12.4 fL 04/26/2025 12:01 AM [facility] Neutrophil 73.1(H) 34.0 - 71.0 % 04/26/2025 12:01 AM [facility] Lymphocyte 17.4(L) 19.0 - 53.0 % 04/26/2025 12:01 AM [facility] Monocyte 7.9 5.0 - 13.0 % 04/26/2025 12:01 AM [facility] Eosinophil 0.7(L) 1.0 - 7.0 % 04/26/2025 12:01 AM [facility] Basophil 0.3 0.0 - 1.0 % 04/26/2025 12:01 AM [facility] Immature Granulocyte ([place], Myelo, Promyelocyte) 0.6 0.0 - 2.0 % 04/26/2025 12:01 AM [facility] Absolute Neutrophil Count 8.48(H) 1.60 - 6.10 K/uL 04/26/2025 12:01 AM [facility] Absolute Immature Granulocyte ([place], Myelo, Promyelocyte) 0.07 0.00 - 0.80 K/uL 04/26/2025 12:01 AM [facility] Absolute Lymphocyte Count 2.02 1.20 - 3.70 K/uL 04/26/2025 12:01 AM [facility] Absolute Monocyte Count 0.91(H) 0.20 - 0.80 K/uL 04/26/2025 12:01 AM [facility] Absolute Eosinophil Count 0.08 0.04 - 0.54 K/uL 04/26/2025 12:01 AM [facility] Absolute Basophil Count 0.03 0.01 - 0.08 K/uL 04/26/2025 12:01 AM [facility] Blood PERIPHERAL BLOOD SPECIMEN / Unknown Venipuncture / Unknown 04/25/2025 11:39 PM EST 04/25/2025 11:41 PM EST us Vlad Ramsay MD LAB BLOOD ORDERABLES Final Re sult Performing Organization Address [facility]/ZIP Co de Phone Number [facility] [address] [place] [address], * (ABNORMAL) Plasma Toxicology Screen (04/25/2025 11:39 PM EST) Acetaminophen Result,Blood <15 <30 ug/mL 04/26/2025 12:10 AM [facility] Alcohol 90(H) <10 mg/dL 04/26/2025 12:10 AM [facility] Salicylate Level, Blood <1(L) 3 - 20 mg/dL 04/26/2025 12:10 AM [facility] Blood PERIPHERAL BLOOD SPECIMEN / Unknown Venipuncture / Unknown 04/25/2025 11:39 PM EST 04/25/2025 11:41 PM EST us Vlad Ramsay MD LAB BLOOD ORDERABLES Final Re sult Performing Organization Address [facility]/ZIP Co de Phone Number [facility] [address] [place] [address], * (ABNORMAL) Basic Metabolic Panel (04/25/2025 11:39 PM EST) Sodium 141 136 - 145 mmol/L 04/26/2025 12:06 AM [facility] Potassium 3.9 3.5 - 5.4 mmol/L 04/26/2025 12:06 AM [facility] Chloride 108(H) 98 - 107 mmol/L 04/26/2025 12:06 AM [facility] Total CO2/Bicarbonat e 19(L) 22 - 32 mmol/L 04/26/2025 12:06 AM [facility] Anion Gap 04/26/2025 12:06 AM [facility] BUN 12 6 - 20 mg/dL 04/26/2025 12:06 AM [facility] Creatinine, Blood 0.96 0.70 - 1.20 mg/dL 04/26/2025 12:06 AM [facility] Glucose, Blood 97 70 - 115 mg/dL 04/26/2025 12:06 AM [facility] Calcium 8.6 8.5 - 10.6 mg/dL 04/26/2025 12:06 AM [facility] Estimated GFR(CKD-EPI) 110 mL/min/BSA 04/26/2025 12:06 AM [facility] Blood PERIPHERAL BLOOD SPECIMEN / Unknown Venipuncture / Unknown 04/25/2025 11:39 PM EST 04/25/2025 11:41 PM EST Vlad Ramsay MD LAB BLOOD ORDERABLES Final Re sult [facility] [address] [place] [address], * ECG 12 lead (04/25/2025 11:19 PM EST) 04/25/2025 11:1 8 PM EST Narrative GEOFF CV BIDN ECG - 04/25/2025 11:19 PM EST See ED note for ECG result information. Vlad Ramsay MD ECG ORDERABLES Final Result [facility] CV BIDN ECG from Last 3 Months Insurance [facility] Care Teams Slip Cover Maker Relationship Specialty Start Date End Date Pharmacy, [facility] [address] [place] [address] PCP - General Glue Spreader 04/29/24
--- NOTE | 2025-04-27 18:29 | PC.ADMIT ---
29 y/o old male admitted to from [facility] Emergency Department at 1457 on a CV for SI and erratic behaviors. Per report pt well known to [facility] with numerous IPLOC admits for mental health concerns. On 04/25/25 pt was observed outside the emergency department yelling and throwing objects at ambulances and cars. Pt has hx of anxiety, depression, and alcohol use disorder. Pt reportedly consumes ETOH daily, marijuana daily, and occasional crack/cocaine use. Utox positive for Benzos, Cannabinoids, and Cocaine. BAL 90. Pt offered inconsistent responses to the amount of ETOH use. At one point pt stated he consumed a sleeve a day and at another point stated he consumed a gallon of vodka a day. Pt is homeless and unemployed. Pt identified stressors as homelessness, estrangement from social supports, and his mother who he is ill. Per report pt stated he took four 0.5mg Klonopin and drank an unknown amount of tequila and vodka before arriving to [facility] ED intoxicated. Pt required IM medication on 04/25 for aggressive and agitated behaviors while intoxicated in the ED. Pt arrived to via stretcher with oxygen in place via nasal cannula. Per EMS pt was provided with oxygen en route due to feeling anxious and SOB. On arrival pt endorsed high anxiety, stated he was having a panic attack, and also added that he believed he was suffering from ETOH withdrawal symptoms. Pt also complained of dizziness that resolved quickly. Pt was cooperative with safety check, skin check unremarkable. Pt participated minimally in admission process. Pt distracted and focused on the availability of withdrawal medication. Pt interrupted leader writer often during admission assessment to discuss benzodiazepines and available withdrawal medications. Pt reported a history of withdrawal seizures, but denied being diagnosed with a seizure disorder. Pt has prescription for Keppra, ?they told me to take it twice a day to prevent my withdrawal seizures and they said it?s also a good mood stabilizer.? Pt placed on CIWA protocol and received a one time Ativan 2mg and first dose of Gabapentin 300mg after arrival. Shortly after pt received medication he requested additional benzodiazepines.? Pt stated he wanted to be on Librium, but also requested Valium and Ativan. Pt denied SI/HI/AVH and stated he was seeking treatment for his withdrawal symptoms. Pt stated he was hopeful team could find him CSS after discharge. Pt declined to participate in treatment plan or complete safety tool. Pt stated ?I just feel like I am withdrawing too bad. I can?t focus on anything else.? Pt ambulating unit and observed socializing with peers. Pt declined to sign any releases, however provided his pharmacies for medication reconciliation. Pt is an active cigarette smoker and accepted NRT. Pt declined Influenza vaccine. Pt placed on 15 minute checks.
[2025-04-27 20:00] VITALS: BP 141/93; PULSE 83; RESP 20; TEMP 36.8; O2SAT 95
[2025-04-27 20:04] VITALS: BP 141/93
--- NOTE | 2025-04-27 20:05 | HO.PSYADMNOT ---
HPI Date of Service: 04/27/25 Chief Complaint: MDD Sources of Information: patient interviewed, chart reviewed and crisis/core team assessment reviewed HPI Subjective Notes: Lema Warning and Conditional Voluntary Healthcare Proxy: No Guardianship: No Medical Problems Affecting Mental Status: No Narrative: Per [facility] ED note: on 04/25: Patient is a 29 years old male with past hx of severe depression, anxiety, PTSD, and polysubstance, and alcohol use. Patent was drinking and was outside ED throwing objects at ambulances and going up to cars. Patient then brought to [facility] ED for evaluation. Presents with suicidal thoughts reported that he feels safe in the hospital and has not acting on SI. Reports SI has been going on for the past couple of weeks. Stating that it exacerbated prior to be brought in to ED when he left his mother's house. He reports taking more than prescribed Klonopin the night prior to arrival to try to help him with his withdrawal. Reports his last drink was the night before 04/25. Stressors/precipitants including that he is homeless, his mother is ill and is estranged from other social supports in his life. Patient reports history of trauma stating that he witnessed his mother's using substance throughout her life and is now ill. Also reports his family history of mental health and substance use and overdose Patient required IM medication on April 25 with 2 Ativan at 7:21PM and 5 mg of Haldol at 20:33 where patient exhibit episode of escalation when he was trying to go to the bathroom to which security asked him where he was going appeared reports that he became frustrated with security challenging him about whether he could leave. On M5: patient was sitting in the chair in the [place] appears calm, agree to meet as he knows this is the provider who he can discuss regarding medications. He started conversation by reports withdrawal symptoms from alcohol, that he is sweating he is shaky, it does not not feel well, can not eat, and that he is sweating. He tried to raise his arm up to show this provider how severe withdrawals he is experiencing. He then asking questions regarding benzos, and asked which one is working better. When asked what main reason brought him to the hospital, he stating that suicidal thoughts and that he is very depressed. Mom is dying in the hospital in [place] at [facility]. Also reports that he was staying with a girlfriend but he is not sure if he is able to return. Family history: Reports mom having depression and anxiety. Father 11 years ago. Mom also having alcohol issues. Trauma history: He reports having trauma history but I do not want to talk about it . Legal issues: Denies legal issue. Currently unemployed. Substance use history: Reported that he drink alcohol up to a gal a day with last drink was on 04/26/25. Reports withdrawal seizure last episode was couple of weeks ago. Reports he has been drinking for 5 months. However, he has been sobered for 7 months prior to that. Also reports using cocaine with last use was couple of weeks ago, not often using it. Smoke want to 2 packs cigarettes a day. Also reports using THC daily. Reported that he has has been 7.5 years clear from opiate. Currently is on CIWV protocol. Currently has psychiatrist with coming up appointment on 05/13/25. Reports has no therapist or PCP. Denies SI/SIB/HI/AVH. Last suicidal thoughts was yesterday. Reports have 2 suicide attempts in the past but do not want to disclose more details I do not want to talk about . Reports poor sleep, frequently awake every 2 hours at night which he takes Seroquel 400 at bedtime to help him sleep. Appetite is alright. Mood is depressed, and anxious very bad . Reports that he has been compliant with medications. Goal is stay sober and go to [facility] . He does not care which CSS or treatment programs he can go to war aftercare. Patient is A+Ox4, wearing casual attire, no ADL's issues, anxious, depressed but pleasant and cooperative. Perseveration on BZD and alcohol W/D. Clinically patient does not present with W/D symptoms during 1-1 assessment . Seeking medication behaviors. Speech is WNL, normal volume and rate. No manic behavior. Thought process is focused on alcohol withdrawal and benzo. Do not want to referred to addiction medicine team. He is guarded at times. Thought content is on Treatment and future focus. No delusional or paranoid statements made. Do not appear to be psychotic. Judgment and insight poor. Past Psychiatric History: Reports up to 10 inpatient level of care admissions. He does not remember when was the last time he admitted to psychiatric hospital. Denies PHP/respite history. History of up to 12 detox. Last detox was 7-8 months ago. Reports history of 2 suicide attempts. Do not disclose in details. Medical Evaluation Reviewed: Hospitalist Elder Pending [facility] Narrative: Denies medical history. Narrative: Reports that leg surgery when he was 18 years old. Family History: Mom has depression and alcohol issues. Father 11 years ago. Mom is currently ill and is in the hospital. She is the main support person Social History: Single, has 7 years old daughter who is staying with her mom. Unemployed, dropped out of school at 11th grade. Housing is unstable. Substance History: Substance use history: Reported that he drink alcohol up to a gal a day with last drink was on 04/26/25. Reports withdrawal seizure last episode was couple of weeks ago. Reports he has been drinking for 5 months. However, he has been sobered for 7 months prior to that. Also reports using cocaine with last use was couple of weeks ago, not often using it. Smoke want to 2 packs cigarettes a day. Also reports using THC daily. Reported that he has has been 7.5 years clear from opiate. Currently is on CIWV protocol. Trauma History: Reports trauma history but do not want to discuss Diagnostics Vital Signs (24Hr): Vital Signs - 24 hr 04/27/25 15:25 04/27/25 17:39 Temperature 98.2 F 98.4 F Pulse Rate 77 101 H Respiratory Rate 18 18 Blood Pressure 132/92 H 137/95 H Pulse Oximetry 100 96 Oxygen Delivery Method Room Air Room Air BMI result Body Mass Index 29.8 EKG EKG: reviewed Meds/Allergies Meds Home Medications ?Medication ?Instructions ?Recorded ?Confirmed ?Type amitriptyline 10 mg tablet 10 mg PO BEDTIME 04/27/25 04/27/25 History baclofen 10 mg tablet 10 mg PO TID 04/27/25 04/27/25 History clonazepam 0.5 mg tablet (Klonopin) 0.5 mg PO DAILY PRN Anxiety 04/27/25 04/27/25 History clonidine HCl 0.1 mg tablet 0.1 mg PO TID 04/27/25 04/27/25 History levetiracetam 500 mg tablet 500 mg PO BID 04/27/25 04/27/25 History oxcarbazepine 300 mg tablet 300 mg PO BID 04/27/25 04/27/25 History paroxetine HCl 30 mg tablet (Paxil) 30 mg PO DAILY 04/27/25 04/27/25 History quetiapine 100 mg tablet 100 mg PO DAILY 04/27/25 04/27/25 History quetiapine 400 mg tablet 400 mg PO BEDTIME 04/27/25 04/27/25 History topiramate 25 mg tablet 25 mg PO BID 04/27/25 04/27/25 History Allergies Allergies Allergy/AdvReac Type Severity Reaction Status Date / Time No Known Allergies Allergy Verified 04/27/25 13:08 Mental Status Exam Mental Status Exam Narrative: Patient is A+Ox4, wearing casual attire. No ADL's issues, anxious, depressed but pleasant and cooperative. Perseveration on BZD and alcohol W/D. Clinically patient does not present with W/D symptoms during 1-1 assessment . Seeking medication behaviors. Speech is WNL, normal volume and rate. No manic behavior. Thought process is focused on alcohol withdrawal and benzo. Guarded at times. Do not want to referred to addiction medicine team. Thought content is on Treatment and future focus. No delusional or paranoid statements made. Do not appear to be psychotic. Judgment and insight poor. Assessment & Plan Assessment & Plan (1) PTSD (post-traumatic stress disorder): Status: Acute Code(s): F43.10 - Post-traumatic stress disorder, unspecified (2) Alcohol abuse: Status: Acute Code(s): F10.10 - Alcohol abuse, uncomplicated (3) Alcohol withdrawal seizure: Status: Acute Code(s): F10.939 - Alcohol use, unspecified with withdrawal, unspecified; R56.9 - Unspecified convulsions Plan HPI: Patient is a 29 years old male with past hx of severe depression, anxiety, PTSD, and polysubstance, and alcohol use. Patent was drinking and was outside ED throwing objects at ambulances and going up to cars. Patient then brought to [facility] ED for evaluation. Presents with suicidal thoughts reported that he feels safe in the hospital and has not acting on SI. Reports SI has been going on for the past couple of weeks. Stating that it exacerbated prior to be brought in to ED when he left his mother's house. He reports taking more than prescribed Klonopin the night prior to arrival to try to help him with his withdrawal. Reports his last drink was the night before 04/25. Formulation/clinical reasoning: Increasing in stressors, being homeless, mother is ill, increasing alcohol consumption, depressed, anxious, agitated, easily frustrated, was given IMs in the ED, have increased SI. History of severe depression anxiety, but polysubstance use disorders. Given the above information, patient will be safe in restrictive environment, medication management, monitor for alcohol withdrawals, and refer patient to outpatient psychiatric services, or treatment program as a step-down for aftercare. Hospital course: 04/27/25: Patient is placed on CIWA protocol, with Ativan scheduled and p.r.n. for alcohol withdrawal. Will hold Klonopin 0.5 once daily p.r.n. as home medications. Patient is on multi medication to protect from seizure withdrawal. Trileptal 300 BID. Paxil 30mg daily. Also on gabapentin 300mg t.i.d.. Topamax 25 mg b.i.d. Seroquel 100 in the morning and 400 at bedtime. Baclofen 10 mg t.i.d. Clonidine 0.1 t.i.d. Keppra 300mg BID Plan Patient on 15 minute checks for safety. Admitted to . CV. On CIWA protocol for Alcohol W/D symptoms. Hx of W/D sz. Work with treatment team to do collateral for CSS/CCS if possible for aftercare. Refer to patient to community integration specialist: patient declined to be referred to addiction team. Contact the hospitalist regarding hospitalist consultation on admission: pending H&P Per ED records: UTox + BZD (prescrbied Clonazepam), THC, HUMBERTO. BAL 90. Elevated ANC, WBC 11.39. Patient educated on: diagnosis, medication risk/benefits, substance abuse and therapeutic strategies Informed Consent: understands and further education needed Reason for continued inpatient stay Substantial Risk for: med/psych decompensation Statement Statement: I have reviewed the history and physical and performed a pertinent examination on my patient. No changes have occurred unless specified. If the History and Physical was not performed prior to admission, the Hospitalist's service will be consulted for completing the admission physical. Time Spent With Patient Time: Total time managing care of this patient today ____ minutes.
[2025-04-28 08:00] VITALS: BP 162/103; PULSE 91; RESP 18; TEMP 36.8; O2SAT 96
[2025-04-28] MEDS: Nicotine 21 MG PATCH.TD24 TRANSDERMA (08:09)
--- NOTE | 2025-04-28 08:32 | HO.PM.IMCN ---
History of Present Illness Data of Consult Service Date: 04/28/25 Primary Care Provider: Unknown Physician HPI Reason for consult: Medical consult 21-year-old male with past medical history of severe depression, anxiety, hypertension and drug and alcohol abuse presented to [facility] ED after he was found outside the emergency department with throwing objects at ambulance is and going up to random cars. Upon presentation to the ED he was intoxicated, with a history of alcohol withdrawal seizures. He required chemical restraints while in the ED due to erratic behavior. He was evaluated by crisis team and found to be appropriate for inpatient level of care for stabilization. His EKG with normal sinus rhythm. His initial blood work revealed a BAL of 90, no electrolyte imbalances, no evidence of renal dysfunction, slight leukocytosis no anemia. Tox screen positive for benzos, marijuana, and cocaine. On exam he is reporting symptoms of withdrawal, on CIWA scale. Out of bed in milieu ambulating with steady gait. No medical concerns. Review of Systems Review of Systems: Patient has no acute medical complaints at this time Denies any shortness of breath, dizziness, chest pain, abdominal pain, dysuria or any other concerning symptoms. PMFSH Social History Household Members: None Housing: Homeless Do you presently have visiting nurse or other home services: No Patient Tobacco Use Status: Current everyday Tobacco user Tobacco use type: Cigarette Smoked in Last 30 Days: Yes Patient Interested in Nicotine Replacement: Yes Currently Displaying Signs/Symptoms of Drug Intoxication Withdrawal: No Advance Directives: No Advance Directives Information Provided: No Do you have thoughts of harming others: None Do you have a plan to hurt others: No Plan Recently lost weight without trying: Unsure Nutrition Risks: No Nutritional Risk service: No Sexual orientation: Straight/Heterosexual Meds Allergies Allergy/AdvReac Type Severity Reaction Status Date / Time No Known Allergies Allergy Verified 04/27/25 13:08 Active Medications: Current Medications Acetaminophen (Acetaminophen 325 Mg Tablet) 650 mg PO Q6H PRN PRN Reason: Headache/Pain, Scale 1-10 Last Admin: 04/27/25 17:40 Dose: 650 mg Al Hydroxide/Mg Hydroxide (Magnesium Hydrox/Alum Hydrox 30 Ml Oral.Susp) 30 ml PO Q6H PRN PRN Reason: Heartburn/Nausea Amitriptyline HCl (Amitriptyline Hcl 10 Mg Tablet) 10 mg PO BEDTIME [facility]LLY Last Admin: 04/27/25 21:03 Dose: 10 mg Baclofen (Baclofen 10 Mg Tablet) 10 mg PO TID [facility] Last Admin: 04/28/25 08:07 Dose: 10 mg Clonazepam (Clonazepam 0.5 Mg Tablet) 0.5 mg PO DAILY PRN On Hold: 04/27/25 23:57 PRN Reason: anxiety Last Admin: 04/27/25 17:46 Dose: 0.5 mg Clonidine HCl (Clonidine Hcl 0.1 Mg Tablet) 0.1 mg PO TID [facility]; Protocol Last Admin: 04/28/25 08:07 Dose: 0.1 mg Folic Acid (Folic Acid 1 Mg Tablet) 1 mg PO DAILY [facility] Last Admin: 04/28/25 08:07 Dose: 1 mg Gabapentin (Gabapentin 300 Mg Capsule) 300 mg PO TID [facility] Last Admin: 04/28/25 08:07 Dose: 300 mg Hydroxyzine HCl (Hydroxyzine Hcl 25 Mg Tablet) 25 mg PO Q6H PRN PRN Reason: mild anxiety Last Admin: 04/28/25 01:30 Dose: 25 mg Levetiracetam (Levetiracetam 500 Mg Tablet) 500 mg PO BID [facility] Last Admin: 04/28/25 08:07 Dose: 500 mg Lorazepam (Lorazepam 1 Mg Tablet) 1 mg PO Q2H PRN PRN Reason: ciwa 6-10 Last Admin: 04/28/25 01:30 Dose: 1 mg Lorazepam (Lorazepam 1 Mg Tablet) 2 mg PO Q2H PRN PRN Reason: ciwa 11+ Last Admin: 04/28/25 07:52 Dose: 2 mg Lorazepam (Lorazepam 1 Mg Tablet) 1 mg PO TID [facility] Last Admin: 04/28/25 08:07 Dose: 1 mg Magnesium Hydroxide (Milk Of Magnesia 30 Ml Oral.Susp) 30 ml PO DAILY PRN PRN Reason: Constipation Multivitamins/Vitamin C (Multivitamin Tablet) 1 tab PO DAILY [facility] Last Admin: 04/28/25 08:07 Dose: 1 tab Nicotine (Nicotine 21 Mg Patch.Td24) 21 mg TRANSDERMA DAILY PRN PRN Reason: smoking cessation Last Admin: 04/28/25 08:09 Dose: 21 mg Nicotine Polacrilex (Nicotine Polacrilex 2 Mg Gum) 4 mg BUCCAL Q2H PRN PRN Reason: Nicotine Cravings Last Admin: 04/28/25 08:30 Dose: 4 mg Ondansetron HCl (Ondansetron Odt 8 Mg Tab.Rapdis) 8 mg TRANSLINGU Q12H PRN PRN Reason: Nausea and Vomiting Oxcarbazepine (Oxcarbazepine 300 Mg Tablet) 300 mg PO BID [facility] Last Admin: 04/28/25 08:07 Dose: 300 mg Paroxetine HCl (Paroxetine Hcl 30 Mg Tablet) 30 mg PO DAILY [facility] Last Admin: 04/28/25 08:07 Dose: 30 mg Quetiapine Fumarate (Quetiapine Fumarate 100 Mg Tablet) 100 mg PO DAILY [facility] Last Admin: 04/28/25 08:07 Dose: 100 mg Quetiapine Fumarate (Quetiapine Fumarate 400 Mg Tablet) 400 mg PO BEDTIME [facility] Last Admin: 04/27/25 20:05 Dose: 400 mg Thiamine HCl (Thiamine Hcl 100 Mg Tablet) 100 mg PO DAILY [facility] Last Admin: 04/28/25 08:07 Dose: 100 mg Topiramate (Topiramate 25 Mg Tablet) 25 mg PO BID [facility] Last Admin: 04/28/25 08:07 Dose: 25 mg Trazodone HCl (Trazodone Hcl 50 Mg Tablet) 50 mg PO BEDTIME MRX1 PRN PRN Reason: Insomnia Last Admin: 04/27/25 21:03 Dose: 50 mg Home Medications ?Medication ?Instructions ?Recorded ?Confirmed ?Last Taken ?Type amitriptyline 10 mg tablet 10 mg PO BEDTIME 04/27/25 04/27/25 Unknown History baclofen 10 mg tablet 10 mg PO TID 04/27/25 04/27/25 Unknown History clonazepam 0.5 mg tablet (Klonopin) 0.5 mg PO DAILY PRN Anxiety 04/27/25 04/27/25 Unknown History clonidine HCl 0.1 mg tablet 0.1 mg PO TID 04/27/25 04/27/25 04/27/25 History levetiracetam 500 mg tablet 500 mg PO BID 04/27/25 04/27/25 04/27/25 08:30 History oxcarbazepine 300 mg tablet 300 mg PO BID 04/27/25 04/27/25 04/27/25 08:30 History paroxetine HCl 30 mg tablet (Paxil) 30 mg PO DAILY 04/27/25 04/27/25 04/27/25 08:30 History quetiapine 100 mg tablet 100 mg PO DAILY 04/27/25 04/27/25 04/27/25 History 0830 quetiapine 400 mg tablet 400 mg PO BEDTIME 04/27/25 04/27/25 Unknown History topiramate 25 mg tablet 25 mg PO BID 04/27/25 04/27/25 Unknown History Physical Exam Vital Signs and Narrative: Vital Signs: Last Vital Signs Temp 98.2 F 04/28/25 08:00 Pulse 91 04/28/25 08:00 Resp 18 04/28/25 08:00 BP 162/103 H 04/28/25 08:00 Pulse Ox 96 04/28/25 08:00 O2 Del Method Room Air 04/28/25 08:00 BMI result Body Mass Index 29.8 Alert and oriented X3, calm and cooperative. Answers questions. Neuro: CN II-X11 intact, no deficits, visual acuity intact. Mild tremors in hands. EYES: PERRLA, EOM intact ENT: Hearing intact, MMM Cardiac: S1 S2 RRR, No ectopy Pulmonary: lungs clear to auscultation, No increased WOB. Abdominal: BS active in all 4 quadrants, no guarding or tenderness MSK: Strength 5/5 upper and lower extremities : Deferred Extremities: No edema in lower extremities Psych: Mood stable, Quiet and cooperative. No agitation. Skin: Warm and dry, Intact Assessment and Plan (1) HTN (hypertension): Status: Acute Plan 29-year-old with a past medical history listed below department after was found outside located with erratic behavior. He is admitted here for further stabilization. Depression/anxiety/EtOH disorder/DAVONTE Patient with a history of withdrawal seizures Currently on CIWA scale Treatment per psychiatric team Hypertension Continue clonidine t.i.d. Continue to follow up blood pressures if they remain persistently elevated we will need additional medication Blood pressure elevated likely due to withdrawal symptoms. Thank you for allowing me to participate in the care of this patient. Will follow with you, please notify medical provider with any changes in condition or concerns.
[2025-04-28 08:42] LABS: Hemoglobin A1C 116.3770 umol/L; Total Hemoglobin (HGBA1C) 3710.4500 umol/L
[2025-04-28 08:47] LABS: Cholesterol 171 mg/dL (<200); HDL Cholesterol 48 mg/dL (>40); Magnesium 1.9 mg/dL (1.6-2.6); Triglycerides 213 mg/dL (<150)
[2025-04-28 09:05] LABS: Free T4 (Free Thyroxine) 0.81 ng/dL (0.71-1.85); Thyroid Stimulating Hormone 1.98 uIU/mL (0.32-4.0)
--- NOTE | 2025-04-28 09:07 | P.PNPSI_ITS ---
Subjective Subjective Date of Service: 04/28/25 Reason For Visit: MDD Subjective Notes: Conditional Voluntary Healthcare Proxy: No Guardianship: No Medical Problems Affecting Mental Status: No Interim History: Patient found ambulating in the hallway. He states that he feels like crap. He vomited after eating breakfast this morning. He has been shaking and feeling anxious, hot, and cold. He reports 10/10 anxiety and depression at this time. He denies SI/HI/AVH. His goal is to go to a CSS program. He wants to be sober to return to his 7-year-old daughter. Medication Compliance: Yes Side effects from medications: No Review of Systems Acute medical concerns: No Mental Status Exam Mental Status Exam Narrative: Appearance: Casually dressed, adequate hygiene and grooming Behavior: Calm and cooperative throughout the interview. Eye contact is appropriate, and there are no signs of psychomotor agitation or retardation Speech: Normal volume and prosody Thought process: Logical and goal-directed Thought content: Future oriented no self-harming thoughts Mood: anxious and depressed Affect: Constricted SI: Denies HI: Denies VH/AH: None Delusions: None Insight/judgment: Impaired insight and judgment Memory/cog: Alert, oriented x 4. grossly intact to conversational testing Diagnostics Vital Signs (24Hr): Vital Signs - 24 hr 04/27/25 15:25 04/27/25 17:39 04/27/25 20:00 Temperature 98.2 F 98.4 F 98.2 F Pulse Rate 77 101 H 83 Respiratory Rate 18 18 20 Blood Pressure 132/92 H 137/95 H 141/93 H Pulse Oximetry 100 96 95 Oxygen Delivery Method Room Air Room Air Room Air 04/27/25 20:04 04/28/25 08:00 Temperature 98.2 F Pulse Rate 91 Respiratory Rate 18 Blood Pressure 141/93 H 162/103 H Pulse Oximetry 96 Oxygen Delivery Method Room Air BMI result Body Mass Index 29.8 Labs Labs: Laboratory Results - last 48 hr 04/28/25 07:47 Estimat Average Glucose 97 Hemoglobin A1c % 5.0 Magnesium 1.9 Triglycerides 213 H Cholesterol 171 LDL Cholesterol, Calc 81 HDL Cholesterol 48 TSH 1.98 Free T4 0.81 Medications Medications Current Medications Acetaminophen (Acetaminophen 325 Mg Tablet) 650 mg PO Q6H PRN PRN Reason: Headache/Pain, Scale 1-10 Last Admin: 04/27/25 17:40 Dose: 650 mg Al Hydroxide/Mg Hydroxide (Magnesium Hydrox/Alum Hydrox 30 Ml Oral.Susp) 30 ml PO Q6H PRN PRN Reason: Heartburn/Nausea Amitriptyline HCl (Amitriptyline Hcl 10 Mg Tablet) 10 mg PO BEDTIME [facility] Last Admin: 04/27/25 21:03 Dose: 10 mg Baclofen (Baclofen 10 Mg Tablet) 10 mg PO TID [facility] Last Admin: 04/28/25 08:07 Dose: 10 mg Clonazepam (Clonazepam 0.5 Mg Tablet) 0.5 mg PO DAILY PRN On Hold: 04/27/25 23:57 PRN Reason: anxiety Last Admin: 04/27/25 17:46 Dose: 0.5 mg Clonidine HCl (Clonidine Hcl 0.1 Mg Tablet) 0.1 mg PO TID [facility]; Protocol Last Admin: 04/28/25 08:07 Dose: 0.1 mg Folic Acid (Folic Acid 1 Mg Tablet) 1 mg PO DAILY [facility] Last Admin: 04/28/25 08:07 Dose: 1 mg Gabapentin (Gabapentin 300 Mg Capsule) 300 mg PO TID [facility] Last Admin: 04/28/25 08:07 Dose: 300 mg Hydroxyzine HCl (Hydroxyzine Hcl 25 Mg Tablet) 25 mg PO Q6H PRN PRN Reason: mild anxiety Last Admin: 04/28/25 01:30 Dose: 25 mg Levetiracetam (Levetiracetam 500 Mg Tablet) 500 mg PO BID [facility] Last Admin: 04/28/25 08:07 Dose: 500 mg Lorazepam (Lorazepam 1 Mg Tablet) 1 mg PO Q2H PRN PRN Reason: ciwa 6-10 Last Admin: 04/28/25 01:30 Dose: 1 mg Lorazepam (Lorazepam 1 Mg Tablet) 2 mg PO Q2H PRN PRN Reason: ciwa 11+ Last Admin: 04/28/25 07:52 Dose: 2 mg Lorazepam (Lorazepam 1 Mg Tablet) 1 mg PO TID [facility] Last Admin: 04/28/25 08:07 Dose: 1 mg Magnesium Hydroxide (Milk Of Magnesia 30 Ml Oral.Susp) 30 ml PO DAILY PRN PRN Reason: Constipation Multivitamins/Vitamin C (Multivitamin Tablet) 1 tab PO DAILY [facility] Last Admin: 04/28/25 08:07 Dose: 1 tab Nicotine (Nicotine 21 Mg Patch.Td24) 21 mg TRANSDERMA DAILY PRN PRN Reason: smoking cessation Last Admin: 04/28/25 08:09 Dose: 21 mg Nicotine Polacrilex (Nicotine Polacrilex 2 Mg Gum) 4 mg BUCCAL Q2H PRN PRN Reason: Nicotine Cravings Last Admin: 04/28/25 08:30 Dose: 4 mg Ondansetron HCl (Ondansetron Odt 8 Mg Tab.Rapdis) 8 mg TRANSLINGU Q12H PRN PRN Reason: Nausea and Vomiting Oxcarbazepine (Oxcarbazepine 300 Mg Tablet) 300 mg PO BID [facility] Last Admin: 04/28/25 08:07 Dose: 300 mg Paroxetine HCl (Paroxetine Hcl 30 Mg Tablet) 30 mg PO DAILY [facility] Last Admin: 04/28/25 08:07 Dose: 30 mg Quetiapine Fumarate (Quetiapine Fumarate 100 Mg Tablet) 100 mg PO DAILY [facility] Last Admin: 04/28/25 08:07 Dose: 100 mg Quetiapine Fumarate (Quetiapine Fumarate 400 Mg Tablet) 400 mg PO BEDTIME [facility] Last Admin: 04/27/25 20:05 Dose: 400 mg Thiamine HCl (Thiamine Hcl 100 Mg Tablet) 100 mg PO DAILY [facility] Last Admin: 04/28/25 08:07 Dose: 100 mg Topiramate (Topiramate 25 Mg Tablet) 25 mg PO BID [facility] Last Admin: 04/28/25 08:07 Dose: 25 mg Trazodone HCl (Trazodone Hcl 50 Mg Tablet) 50 mg PO BEDTIME MRX1 PRN PRN Reason: Insomnia Last Admin: 04/27/25 21:03 Dose: 50 mg Allergies Allergies Allergy/AdvReac Type Severity Reaction Status Date / Time No Known Allergies Allergy Verified 04/27/25 13:08 Assessment & Plan Assessment & Plan (1) PTSD (post-traumatic stress disorder): Status: Acute Code(s): F43.10 - Post-traumatic stress disorder, unspecified (2) Alcohol abuse: Status: Acute Code(s): F10.10 - Alcohol abuse, uncomplicated (3) Alcohol withdrawal seizure: Status: Acute Code(s): F10.939 - Alcohol use, unspecified with withdrawal, unspecified; R56.9 - Unspecified convulsions Plan HPI: Patient is a 29 years old male with past hx of severe depression, anxiety, PTSD, and polysubstance, and alcohol use. Patent was drinking and was outside ED throwing objects at ambulances and going up to cars. Patient then brought to [facility] ED for evaluation. Presents with suicidal thoughts reported that he feels safe in the hospital and has not acting on SI. Reports SI has been going on for the past couple of weeks. Stating that it exacerbated prior to be brought in to ED when he left his mother's house. He reports taking more than prescribed Klonopin the night prior to arrival to try to help him with his withdrawal. Reports his last drink was the night before 04/25. Formulation/clinical reasoning: Increasing in stressors, being homeless, mother is ill, increasing alcohol consumption, depressed, anxious, agitated, easily frustrated, was given IMs in the ED, have increased SI. History of severe depression anxiety, but polysubstance use disorders. Given the above information, patient will be safe in restrictive environment, medication management, monitor for alcohol withdrawals, and refer patient to outpatient psychiatric services, or treatment program as a step-down for aftercare. Hospital course: 04/27/25: Patient is placed on CIWA protocol, with Ativan scheduled and p.r.n. for alcohol withdrawal. Will hold Klonopin 0.5 once daily p.r.n. as home medications. Patient is on multi medication to protect from seizure withdrawal. Trileptal 300 BID. Paxil 30mg daily. Also on gabapentin 300mg t.i.d.. Topamax 25 mg b.i.d. Seroquel 100 in the morning and 400 at bedtime. Baclofen 10 mg t.i.d. Clonidine 0.1 t.i.d. Keppra 300mg BID 04/28: Patient states that he feels like crap. He vomited after eating breakfast this morning. He has been shaking and feeling anxious, hot, and cold. He reports 10/10 anxiety and depression at this time. He denies SI/HI/AVH. His goal is to go to a CSS program. He wants to be sober to return to his 7-year-old daughter. Current CIWA is 04/07/14. Clonazepam 0.5 mg daily as needed restarted. Stat dose of clonidine 0.1 mg ordered for elevated blood pressure. Calamine lotion prescribed for maculopapular rash to left forearm, likely related to poison rubio, reported by nursing. Continue current treatment regimen. Spoke with the patient patient psychiatric nurse practitioner who states that she has met with the patient twice and that Keppra 500 mg daily was started at [facility], in [place], in May 2024 for alcohol and cocaine withdrawal seizures, before she started seeing the patient. Patient signed a 3d today which will on 05/03. Plan Patient on 15 minute checks for safety. Admitted to . CV. On CIWA protocol for Alcohol W/D symptoms. Hx of W/D sz. Work with treatment team to do collateral for CSS/CCS if possible for aftercare. Refer to patient to biodiesel engine specialist: patient declined to be referred to addiction team. Contact the hospitalist regarding hospitalist consultation on admission: pending H&P Per ED records: UTox + BZD (prescrbied Clonazepam), THC, HUMBERTO. BAL 90. Elevated ANC, WBC 11.39. Patient educated on: therapeutic strategies Reason for continued inpatient stay Substantial Risk for: rapid decompensation Time Spent With Patient Time: Total time managing care of this patient today ____ minutes.
[2025-04-28 09:17] LABS: Folate 8.8 ng/mL (> or = 4.0); Vitamin B12 554 pg/mL (200-900)
[2025-04-28 14:24] VITALS: BP 170/96
--- NOTE | 2025-04-28 17:30 | MHC.RECOVRN ---
TW met with pt in group room on M5 after consult received by Addiction Medicine for AUD. While entering the unit pt is seen laughing and socializing with peers. He was witnessed approaching the nurses station several times with numerous requests including nicotine gum, ?cream for poison rubio? and a new pt identification bracelet.? When interviewed in private, pt reports experiencing headache, tremors, stomach pains, hot and cold flashes, pins and needles, and nausea however this report does not match his presentation.? Pt reports drinking approximately 1 gallon of vodka daily for the past 5 months. He states his mother is dying and attributes this to his increased use. He also states he has been abstinent from opiates for almost 8 years. He states he did so ?cold turkey? and denies any history of overdose. He also endorses occasional cocaine and marijuana use but states ?I can take it or leave it?? Provided pt with written resources and education including information on inpatient and outpatient treatment, KETAN, harm reduction and recovery coaching. ?He states his plan upon discharge is to attend [facility]. He declined KETAN or other supports at this time.? TW available as needed for ongoing support or resources
[2025-04-28 19:58] VITALS: BP 153/87
[2025-04-28 20:00] VITALS: BP 153/87; PULSE 93; RESP 16; TEMP 37.1; O2SAT 95
[2025-04-29] MEDS: Nicotine 21 MG PATCH.TD24 TRANSDERMA (07:26)
[2025-04-29 08:20] VITALS: BP 149/74; PULSE 82; RESP 16; TEMP 36.3; O2SAT 96
--- NOTE | 2025-04-29 09:07 | P.PNPSI_ITS ---
Subjective Subjective Date of Service: 04/29/25 Reason For Visit: MDD Subjective Notes: Conditional Voluntary and 3 Day Healthcare Proxy: No Guardianship: No Medical Problems Affecting Mental Status: No Interim History: Patient found ambulating in the hallway. He states that I still feels like shit! He continues to experience withdrawal symptoms such as tremors, or sweats, restlessness at night, and diarrhea. His anxiety is currently 10/10 and depression is 6 to 7/10. He has been taking his medications as prescribed and feels like today will be the last day of severe withdrawal symptoms. His lab 5 hours last night per nursing. He denies SI/HI/AVH. He states that he spoke with [facility] today. The offer rehab for both mental illness and substance use disorder. He was told they will have a bed ready for him on Saturday12/31/2024. Therefore, he wants to live by tomorrow so he can go home and get his belongings before going to the rehab facility. His 3 day notice expires on 05/03/2025. Medication Compliance: Yes Side effects from medications: No Attending Groups: Intermittent Review of Systems Acute medical concerns: No Mental Status Exam Mental Status Exam Narrative: Appearance: Casually dressed, adequate hygiene and grooming Behavior: Calm and cooperative throughout the interview. Eye contact is appropriate, and there are no signs of psychomotor agitation or retardation Speech: Normal volume and prosody Thought process: Logical and goal-directed Thought content: Future oriented no self-harming thoughts, on discharge to a rehab program Mood: anxious and depressed Affect: Constricted SI: Denies HI: Denies VH/AH: None Delusions: Non apparent Insight/judgment: Impaired insight and judgment Memory/cog: Alert, oriented x 4. grossly intact to conversational testing Diagnostics Vital Signs (24Hr): Vital Signs - 24 hr 04/28/25 14:24 04/28/25 19:58 04/28/25 20:00 Temperature 98.7 F Pulse Rate 93 Respiratory Rate 16 Blood Pressure 170/96 H 153/87 H 153/87 H Pulse Oximetry 95 Oxygen Delivery Method Room Air 04/29/25 08:20 Temperature 97.4 F Pulse Rate 82 Respiratory Rate 16 Blood Pressure 149/74 H Pulse Oximetry 96 Oxygen Delivery Method Room Air BMI result Body Mass Index 29.8 Labs Labs: Laboratory Results - last 48 hr 04/28/25 07:47 Estimat Average Glucose 97 Hemoglobin A1c % 5.0 Magnesium 1.9 Triglycerides 213 H Cholesterol 171 LDL Cholesterol, Calc 81 HDL Cholesterol 48 Vitamin B12 554 Folate 8.8 TSH 1.98 Free T4 0.81 Medications Medications Current Medications Acetaminophen (Acetaminophen 325 Mg Tablet) 650 mg PO Q6H PRN PRN Reason: Headache/Pain, Scale 1-10 Last Admin: 04/29/25 02:09 Dose: 650 mg Al Hydroxide/Mg Hydroxide (Magnesium Hydrox/Alum Hydrox 30 Ml Oral.Susp) 30 ml PO Q6H PRN PRN Reason: Heartburn/Nausea Amitriptyline HCl (Amitriptyline Hcl 10 Mg Tablet) 10 mg PO BEDTIME [facility] Last Admin: 04/28/25 19:58 Dose: 10 mg Baclofen (Baclofen 10 Mg Tablet) 10 mg PO TID [facility] Last Admin: 04/29/25 08:26 Dose: 10 mg Calamine (Calamine/Zinc Oxide Lotion 177 Ml Bottle) 1 appl TOPICAL QID PRN; Protocol PRN Reason: ? posion IV rash Last Admin: 04/28/25 15:45 Dose: 1 appl Clonazepam (Clonazepam 0.5 Mg Tablet) 0.5 mg PO DAILY PRN On Hold: 04/27/25 23:57 PRN Reason: anxiety Last Admin: 04/27/25 17:46 Dose: 0.5 mg Clonazepam (Clonazepam 0.5 Mg Tablet) 0.5 mg PO DAILY PRN PRN Reason: Anxiety Last Admin: 04/29/25 07:28 Dose: 0.5 mg Clonidine HCl (Clonidine Hcl 0.1 Mg Tablet) 0.1 mg PO TID [facility]; Protocol Last Admin: 04/29/25 08:26 Dose: 0.1 mg Folic Acid (Folic Acid 1 Mg Tablet) 1 mg PO DAILY [facility] Last Admin: 04/29/25 08:27 Dose: 1 mg Gabapentin (Gabapentin 300 Mg Capsule) 300 mg PO TID [facility] Last Admin: 04/29/25 08:25 Dose: 300 mg Hydroxyzine HCl (Hydroxyzine Hcl 25 Mg Tablet) 25 mg PO Q6H PRN PRN Reason: mild anxiety Last Admin: 04/28/25 16:51 Dose: 25 mg Levetiracetam (Levetiracetam 500 Mg Tablet) 500 mg PO BID [facility] Last Admin: 04/29/25 08:25 Dose: 500 mg Lorazepam (Lorazepam 1 Mg Tablet) 1 mg PO Q2H PRN PRN Reason: ciwa 6-10 Last Admin: 04/29/25 02:10 Dose: 1 mg Lorazepam (Lorazepam 1 Mg Tablet) 2 mg PO Q2H PRN PRN Reason: ciwa 11+ Last Admin: 04/29/25 07:25 Dose: 2 mg Lorazepam (Lorazepam 1 Mg Tablet) 1 mg PO TID [facility] Last Admin: 04/29/25 08:26 Dose: 1 mg Magnesium Hydroxide (Milk Of Magnesia 30 Ml Oral.Susp) 30 ml PO DAILY PRN PRN Reason: Constipation Multivitamins/Vitamin C (Multivitamin Tablet) 1 tab PO DAILY [facility] Last Admin: 04/29/25 08:25 Dose: 1 tab Nicotine (Nicotine 21 Mg Patch.Td24) 21 mg TRANSDERMA DAILY PRN PRN Reason: smoking cessation Last Admin: 04/29/25 07:26 Dose: 21 mg Nicotine Polacrilex (Nicotine Polacrilex 2 Mg Gum) 4 mg BUCCAL Q2H PRN PRN Reason: Nicotine Cravings Last Admin: 04/29/25 07:28 Dose: 4 mg Ondansetron HCl (Ondansetron Odt 8 Mg Tab.Rapdis) 8 mg TRANSLINGU Q12H PRN PRN Reason: Nausea and Vomiting Last Admin: 04/29/25 02:09 Dose: 8 mg Oxcarbazepine (Oxcarbazepine 300 Mg Tablet) 300 mg PO BID [facility] Last Admin: 04/29/25 08:26 Dose: 300 mg Paroxetine HCl (Paroxetine Hcl 30 Mg Tablet) 30 mg PO DAILY [facility] Last Admin: 04/29/25 08:27 Dose: 30 mg Quetiapine Fumarate (Quetiapine Fumarate 100 Mg Tablet) 100 mg PO DAILY [facility] Last Admin: 04/29/25 08:24 Dose: 100 mg Quetiapine Fumarate (Quetiapine Fumarate 400 Mg Tablet) 400 mg PO BEDTIME [facility] Last Admin: 04/28/25 19:57 Dose: 400 mg Thiamine HCl (Thiamine Hcl 100 Mg Tablet) 100 mg PO DAILY [facility] Last Admin: 04/29/25 08:25 Dose: 100 mg Topiramate (Topiramate 25 Mg Tablet) 25 mg PO BID [facility] Last Admin: 04/29/25 08:25 Dose: 25 mg Trazodone HCl (Trazodone Hcl 50 Mg Tablet) 50 mg PO BEDTIME MRX1 PRN PRN Reason: Insomnia Last Admin: 04/29/25 04:25 Dose: 50 mg Allergies Allergies Allergy/AdvReac Type Severity Reaction Status Date / Time No Known Allergies Allergy Verified 04/27/25 13:08 Assessment & Plan Assessment & Plan (1) PTSD (post-traumatic stress disorder): Status: Acute Code(s): F43.10 - Post-traumatic stress disorder, unspecified (2) Alcohol abuse: Status: Acute Code(s): F10.10 - Alcohol abuse, uncomplicated (3) Alcohol withdrawal seizure: Status: Acute Code(s): F10.939 - Alcohol use, unspecified with withdrawal, unspecified; R56.9 - Unspecified convulsions Plan HPI: Patient is a 29 years old male with past hx of severe depression, anxiety, PTSD, and polysubstance, and alcohol use. Patent was drinking and was outside ED throwing objects at ambulances and going up to cars. Patient then brought to [facility] ED for evaluation. Presents with suicidal thoughts reported that he feels safe in the hospital and has not acting on SI. Reports SI has been going on for the past couple of weeks. Stating that it exacerbated prior to be brought in to ED when he left his mother's house. He reports taking more than prescribed Klonopin the night prior to arrival to try to help him with his withdrawal. Reports his last drink was the night before 04/25. Formulation/clinical reasoning: Increasing in stressors, being homeless, mother is ill, increasing alcohol consumption, depressed, anxious, agitated, easily frustrated, was given IMs in the ED, have increased SI. History of severe depression anxiety, but polysubstance use disorders. Given the above information, patient will be safe in restrictive environment, medication management, monitor for alcohol withdrawals, and refer patient to outpatient psychiatric services, or treatment program as a step-down for aftercare. Hospital course: 04/27/25: Patient is placed on CIWA protocol, with Ativan scheduled and p.r.n. for alcohol withdrawal. Will hold Klonopin 0.5 once daily p.r.n. as home medications. Patient is on multi medication to protect from seizure withdrawal. Trileptal 300 BID. Paxil 30mg daily. Also on gabapentin 300mg t.i.d.. Topamax 25 mg b.i.d. Seroquel 100 in the morning and 400 at bedtime. Baclofen 10 mg t.i.d. Clonidine 0.1 t.i.d. Keppra 300mg BID 04/28: Patient states that he feels like crap. He vomited after eating breakfast this morning. He has been shaking and feeling anxious, hot, and cold. He reports 10 anxiety and depression at this time. He denies SI/HI/AVH. His goal is to go to a CSS program. He wants to be sober to return to his 7-year-old daughter. Current CIWA is 04/07/14. Clonazepam 0.5 mg daily as needed restarted. Stat dose of clonidine 0.1 mg ordered for elevated blood pressure. Calamine lotion prescribed for maculopapular rash to left forearm, likely related to poison rubio, reported by nursing. Continue current treatment regimen. Spoke with the patient patient psychiatric nurse practitioner who states that she has met with the patient twice and that Keppra 500 mg daily was started at [facility], in [place], in May 2024 for alcohol and cocaine withdrawal seizures, before she started seeing the patient. 04/29: Reports continued withdrawal symptoms, anxiety, and depression. No SI/HI/AVH. He called today and was he will have a bed Ready at [facility] next Saturday and therefore wants to be discharged to get ready for rehab. His CIWA today is 03/05/15. Will start tapering down p.r.n. Ativan by 2 mg daily. Total PRN Ativan today should be no more than 10 mg. Continue current treatment regimen. Plan Patient on 15 minute checks for safety. Admitted to . CV. On CIWA protocol for Alcohol W/D symptoms. Hx of W/D sz. Work with treatment team to do collateral for CSS/CCS if possible for aftercare. Refer to patient to certified medical coding specialist: patient declined to be referred to addiction team. Contact the hospitalist regarding hospitalist consultation on admission: pending H&P Per ED records: UTox + BZD (prescrbied Clonazepam), THC, HUMBERTO. BAL 90. Elevated ANC, WBC 11.39. Patient educated on: medication risk/benefits and therapeutic strategies Reason for continued inpatient stay Substantial Risk for: rapid decompensation Time Spent With Patient Time: Total time managing care of this patient today ____ minutes.
[2025-04-29 10:44] VITALS: BMI 30.4
[2025-04-29 12:17] VITALS: BP 144/90
[2025-04-29 15:47] VITALS: BP 157/92; PULSE 95; RESP 16; O2SAT 96
[2025-04-29 20:00] VITALS: BP 148/76; PULSE 108; O2SAT 98
[2025-04-29 20:10] VITALS: BP 140/90
[2025-04-30 08:51] VITALS: BP 162/74; PULSE 90; TEMP 36.4; O2SAT 98
--- NOTE | 2025-04-30 09:56 | P.PNPSI_ITS ---
Subjective Subjective Date of Service: 04/30/25 Reason For Visit: MDD Interim History: met with patient; discussed with team ?Patient continued to make inappropriate remarks to female staff and peers over the past several days, not responding to redirection.? Today patient overheard by staff talking to a [place] female peer about sucking his genitals; ?made sexually inappropriate remark to rn community, talking about her masturbating; followed female peer into the bathroom, made another inappropriate comment to another female peer who was on the phone with her boyfriend; talked to another female staff saying she would look good with ?her uniform off, asking to exchange phone numbers ?so she could talk [place] to him and call him ?keely..? ? Once patient found out that staff was aware? that he made these comments to female peers, he started questioning each female peer saying which 1 of them told staff? (no coincidence, he asked the very same female peers who had reported this to staff- and did not ask any peer he had not made a comment to) Instructional Systems Specialist confronted patient who he initially denied it; however with further inquiry, he then? admitted the comments, sayin g he gets ? horny when he is on Ativan?He also acknowledged other people he had been inappropriate to, ?including patient?s with which instructional writer was not aware.? He apologized ?to instructional writer and ?accepted he was being discharged;said he hopes he could still into program from home.? Instructional Systems Specialist discussed who was being discharged with diazepam taper which patient fully understood. ?Patient agreed to self present to an emergency room if he started to get confused or felt his withdrawal symptoms could not be controlled by current diazepam taper. It is worth noting that several of patient's withdrawal symptoms were only present during specific staff inquiry and otherwise, patient was observed by multiple staff, including this instructional writer to be without any overt withdrawal symptoms including hand tremors which again were only present when nursing staff was assessing for CIWA; outside of these assessments patient was observed comfortably interacting with peers in the milieu. Patient said he plans to go stay at his mother?s and continue to try to get into the specific program.? Patient ?was fully organized in speech and behavior; he? is not manic and he is not psychotic. ??Patient denied any SI? today and consistently over the past several days; as mentioned patient remained future oriented saying he still wants to pursue sobriety because he has a 7-year-old daughter. Patient fully understood what he did was bothering people and understood that it was inappropriate.? Patient?s mother was not surprised he was being discharged.? Patient had an adequate supply of all his home medications which he had brought with him to this hospitalization and were being returned to him on discharge.?Of note, patient had a 3 day notice submitted and plan to discharge on his own if he did not get into a detox program. Patient was not in imminent risk of harm to self or others and other than still having withdrawal symptoms, he had returned to baseline. As patient was psychiatrically stable, had he been accepted to a detox program today, he would have been discharged to that program. Mental Status Exam Mental Status Exam Narrative: Pt is alert and oriented; behavior is cooperative, friendly and calm on approach by staff however is otherwise making sexually inappropriate remarks to female peers and staff; patient is not in distress; dressed in casual attire with adequ ate hygiene; mood is described as good and affect congruent; eye contact appropriate; Speech is normal rate, volume and prosody and not pressured; no psychomotor agitation/retardation present; thought process is organized and goal directed; Thought content is on tx; otherwise pertinent to relevant topics and without any delusional content, paranoid ideations or grandiosity; denies any SI/HI. Denies AVH and there is no evidence of perceptual disturbance. Patients insight and judgment appear intact. Diagnostics Vital Signs (24Hr): Vital Signs - 24 hr 04/29/25 12:17 04/29/25 15:47 04/29/25 20:00 Pulse Rate 95 108 H Respiratory Rate 16 Blood Pressure 144/90 H 157/92 H 148/76 H Pulse Oximetry 96 98 Oxygen Delivery Method Room Air 04/29/25 20:10 04/30/25 08:51 Pulse Rate Respiratory Rate Blood Pressure 140/90 H 162/74 H Pulse Oximetry Oxygen Delivery Method BMI result Body Mass Index 30.4 Medications Medications Current Medications Acetaminophen (Acetaminophen 325 Mg Tablet) 650 mg PO Q6H PRN PRN Reason: Headache/Pain, Scale 1-10 Last Admin: 04/30/25 06:14 Dose: 650 mg Al Hydroxide/Mg Hydroxide (Magnesium Hydrox/Alum Hydrox 30 Ml Oral.Susp) 30 ml PO Q6H PRN PRN Reason: Heartburn/Nausea Amitriptyline HCl (Amitriptyline Hcl 10 Mg Tablet) 10 mg PO BEDTIME [facility] Last Admin: 04/29/25 20:11 Dose: 10 mg Baclofen (Baclofen 10 Mg Tablet) 10 mg PO TID CHELLY Last Admin: 04/30/25 08:51 Dose: 10 mg Calamine (Calamine/Zinc Oxide Lotion 177 Ml Bottle) 1 appl TOPICAL QID PRN; Protocol PRN Reason: ? posion IV rash Last Admin: 04/28/25 15:45 Dose: 1 appl Clonazepam (Clonazepam 0.5 Mg Tablet) 0.5 mg PO DAILY PRN On Hold: 04/27/25 23:57 PRN Reason: anxiety Last Admin: 04/27/25 17:46 Dose: 0.5 mg Clonazepam (Clonazepam 0.5 Mg Tablet) 0.5 mg PO DAILY PRN PRN Reason: Anxiety Last Admin: 04/30/25 00:06 Dose: 0.5 mg Clonidine HCl (Clonidine Hcl 0.1 Mg Tablet) 0.1 mg PO TID CHELLY; Protocol Last Admin: 04/30/25 08:51 Dose: 0.1 mg Folic Acid (Folic Acid 1 Mg Tablet) 1 mg PO DAILY [facility] Last Admin: 04/30/25 08:51 Dose: 1 mg Gabapentin (Gabapentin 300 Mg Capsule) 300 mg PO TID CHELLY Last Admin: 04/30/25 08:51 Dose: 300 mg Hydroxyzine HCl (Hydroxyzine Hcl 25 Mg Tablet) 25 mg PO Q6H PRN PRN Reason: mild anxiety Last Admin: 04/30/25 09:00 Dose: 25 mg Levetiracetam (Levetiracetam 500 Mg Tablet) 500 mg PO BID [facility] Last Admin: 04/30/25 08:51 Dose: 500 mg Lorazepam (Lorazepam 1 Mg Tablet) 1 mg PO Q2H PRN PRN Reason: ciwa 6-10...Total =<10mg today Last Admin: 04/29/25 02:10 Dose: 1 mg Lorazepam (Lorazepam 1 Mg Tablet) 2 mg PO Q2H PRN PRN Reason: ciwa 11+...Total =<10mg today Last Admin: 04/30/25 08:59 Dose: 2 mg Lorazepam (Lorazepam 1 Mg Tablet) 1 mg PO TID [facility] Last Admin: 04/30/25 08:51 Dose: 1 mg Magnesium Hydroxide (Milk Of Magnesia 30 Ml Oral.Susp) 30 ml PO DAILY PRN PRN Reason: Constipation Multivitamins/Vitamin C (Multivitamin Tablet) 1 tab PO DAILY [facility] Last Admin: 04/30/25 08:51 Dose: 1 tab Nicotine (Nicotine 21 Mg Patch.Td24) 21 mg TRANSDERMA DAILY PRN PRN Reason: smoking cessation Last Admin: 04/29/25 07:26 Dose: 21 mg Nicotine Polacrilex (Nicotine Polacrilex 2 Mg Gum) 4 mg BUCCAL Q2H PRN PRN Reason: Nicotine Cravings Last Admin: 04/30/25 09:00 Dose: 4 mg Ondansetron HCl (Ondansetron Odt 8 Mg Tab.Rapdis) 8 mg TRANSLINGU Q12H PRN PRN Reason: Nausea and Vomiting Last Admin: 04/29/25 20:11 Dose: 8 mg Oxcarbazepine (Oxcarbazepine 300 Mg Tablet) 300 mg PO BID [facility] Last Admin: 04/30/25 08:51 Dose: 300 mg Paroxetine HCl (Paroxetine Hcl 30 Mg Tablet) 30 mg PO DAILY [facility] Last Admin: 04/30/25 08:51 Dose: 30 mg Quetiapine Fumarate (Quetiapine Fumarate 100 Mg Tablet) 100 mg PO DAILY [facility] Last Admin: 04/30/25 08:51 Dose: 100 mg Quetiapine Fumarate (Quetiapine Fumarate 400 Mg Tablet) 400 mg PO BEDTIME [facility] Last Admin: 04/29/25 20:11 Dose: 400 mg Thiamine HCl (Thiamine Hcl 100 Mg Tablet) 100 mg PO DAILY [facility] Last Admin: 04/30/25 08:51 Dose: 100 mg Topiramate (Topiramate 25 Mg Tablet) 25 mg PO BID [facility] Last Admin: 04/30/25 08:51 Dose: 25 mg Trazodone HCl (Trazodone Hcl 50 Mg Tablet) 50 mg PO BEDTIME MRX1 PRN PRN Reason: Insomnia Last Admin: 04/29/25 22:12 Dose: 50 mg Allergies Allergies Allergy/AdvReac Type Severity Reaction Status Date / Time No Known Allergies Allergy Verified 04/27/25 13:08 Assessment & Plan Assessment & Plan (1) PTSD (post-traumatic stress disorder): Status: Acute Code(s): F43.10 - Post-traumatic stress disorder, unspecified (2) Alcohol abuse: Status: Acute Code(s): F10.10 - Alcohol abuse, uncomplicated (3) Alcohol withdrawal seizure: Status: Acute Code(s): F10.939 - Alcohol use, unspecified with withdrawal, unspecified; R56.9 - Unspecified convulsions Plan HPI: Patient is a 29 years old male with past hx of severe depression, anxiety, PTSD, and polysubstance, and alcohol use. Patent was drinking and was outside ED throwing objects at ambulances and going up to cars. Patient then brought to [facility] ED for evaluation. Presents with suicidal thoughts reported that he feels safe in the hospital and has not acting on SI. Reports SI has been going on for the past couple of weeks. Stating that it exacerbated prior to be brought in to ED when he left his mother's house. He reports taking more than prescribed Klonopin the night prior to arrival to try to help him with his withdrawal. Reports his last drink was the night before 04/25. Formulation/clinical reasoning: Increasing in stressors, being homeless, mother is ill, increasing alcohol consumption, depressed, anxious, agitated, easily frustrated, was given IMs in the ED, have increased SI. History of severe depression anxiety, but polysubstance use disorders. Given the above information, patient will be safe in restrictive environment, medication management, monitor for alcohol withdrawals, and refer patient to outpatient psychiatric services, or treatment program as a step-down for aftercare. Hospital course: 04/27/25: Patient is placed on CIWA protocol, with Ativan scheduled and p.r.n. for alcohol withdrawal. Will hold Klonopin 0.5 once daily p.r.n. as home medications. Patient is on multi medication to protect from seizure withdrawal. Trileptal 300 BID. Paxil 30mg daily. Also on gabapentin 300mg t.i.d.. Topamax 25 mg b.i.d. Seroquel 100 in the morning and 400 at bedtime. Baclofen 10 mg t.i.d. Clonidine 0.1 t.i.d. Keppra 300mg BID 04/28: Patient states that he feels like crap. He vomited after eating breakfast this morning. He has been shaking and feeling anxious, hot, and cold. He reports 10/10 anxiety and depression at this time. He denies SI/HI/AVH. His goal is to go to a CSS program. He wants to be sober to return to his 7-year-old daughter. Current CIWA is 04/07/14. Clonazepam 0.5 mg daily as needed restarted. Stat dose of clonidine 0.1 mg ordered for elevated blood pressure. Calamine lotion prescribed for maculopapular rash to left forearm, likely related to poison rubio, reported by nursing. Continue current treatment regimen. Spoke with the patient patient psychiatric nurse practitioner who states that she has met with the patient twice and that Keppra 500 mg daily was started at [facility], in [place], in May 2024 for alcohol and cocaine withdrawal seizures, before she started seeing the patient. 04/29: Reports continued withdrawal symptoms, anxiety, and depression. No SI/HI/AVH. He called today and was he will have a bed Ready at [facility] next Saturday and therefore wants to be discharged to get ready for rehab. His CIWA today is 03/05/15. Will start tapering down p.r.n. Ativan by 2 mg daily. Total PRN Ativan today should be no more than 10 mg. Continue current treatment regimen. 04/30 ?Patient continued to make inappropriate remarks to female staff and peers over the past several days, not responding to redirection.? Today patient overheard by staff talking to a [place] female peer about sucking his genitals; ?made sexually inappropriate remark to rn community, talking about her masturbating; followed female peer into the bathroom, made another inappropriate comment to another female peer who was on the phone with her boyfriend; talked to another female staff saying she would look good with ?her uniform off, asking to exchange phone numbers ?so she could talk [place] to him and call him ?pap i..? ? Once patient found out that staff was aware? that he made these comments to female peers, he started questioning each female peer saying which 1 of them told staff? (no coincidence, he asked the very same female peers who had reported this to staff- and did not ask any peer he had not made a comment to) Instructional Systems Specialist confronted patient who he initially denied it; however with further inquiry, he then? admitted the comments, marcial g he gets ? jony when he is on Ativan?He also acknowledged other people he had been inappropriate to, ?including patient?s with which instructional writer was not aware.? He apologized ?to instructional writer and ?accepted he was being discharged;said he hopes he could still into program from home.? Instructional Systems Specialist discussed who was being discharged with diazepam taper which patient fully understood. ?Patient agreed to self present to an emergency room if he started to get confused or felt his withdrawal symptoms could not be controlled by current diazepam taper. It is worth noting that several of patient's withdrawal symptoms were only present during specific staff inquiry and otherwise, patient was observed by multiple staff, including this instructional writer to be without any overt withdrawal symptoms including hand tremors which again were only present when nursing staff was assessing for CIWA; outside of these assessments patient was observed comfortably interacting with peers in the [place] lieu. Patient said he plans to go stay at his mother?s and continue to try to get into the specific program.? Patient ?was fully organized in speech and behavior; he? is not manic and he is not psychotic. ??Patient denied any SI? today and consistently over the past several days; as mentioned patient remained future oriented saying he still wants to pursue sobriety because he has a 7-year-old daughter. Patient fully understood what he did was bothering people and understood that it was inappropriate.? Patient?s mother was not surprised he was being discharged.? Patient had an adequate supply of all his home medications which he had brought with him to this hospitalization and were being returned to him on discharge.?Of note, patient had a 3 day notice submitted and plan to discharge on his own if he did not get into a detox program. Patient was not in imminent risk of harm to self or others and other than still having withdrawal symptoms, he had returned to baseline. As patient was psychiatrically stable, had he been accepted to a detox program today, he would have been discharged to that program. Patient is at baseline. Patient does not require inpatient level of care. He is acting inappropriately and interfering with the treatment of numerous other female peers. Patient is appropriate to return to the community for treatment and accepts being discharged. Plan Patient on 15 minute checks for safety. Admitted to . CV. On CIWA protocol for Alcohol W/D symptoms. Hx of W/D sz. Work with treatment team to do collateral for CSS/CCS if possible for aftercare. Refer to patient to technical sales specialist: patient declined to be referred to addiction team. Contact the hospitalist regarding hospitalist consultation on admission: pending H&P Per ED records: UTox + BZD (prescrbied Clonazepam), THC, HUMBERTO. BAL 90. Elevated ANC, WBC 11.39. Patient educated on: diagnosis, medication risk/benefits and substance abuse Informed Consent: understands Reason for continued inpatient stay Substantial Risk for: stable for discharge Time Spent With Patient Time: Total time managing care of this patient today ____ minutes.
[2025-04-30] MEDS: Nicotine 21 MG PATCH.TD24 TRANSDERMA (11:00)
[2025-04-30] MEDS: Naloxone HCl Nasal TAKE HOME 4 MG SPRAY 8 MG NOSTRILALT (12:15)
--- NOTE | 2025-04-30 12:37 | P.DS_ITS ---
DS: Providers Provider Date of Service: 04/30/25 Date of admission: 04/27/25 14:46 Date of discharge: 04/30/25 Primary care physician: Unknown Physician Admitting clinician: Airam Rojas Consults: 04/27/25 16:35 Consult to Hospitalist Routine Comment: Consulting Provider: [facility] Reason For Exam: Admission Physical 04/27/25 19:14 Addiction Medicine Provider Routine Consulting Provider: Addiction Covering Reason for consultation: ETOH Attending physician on discharge: Stevan Cintron DS: Diagnosis Discharge Diagnosis (1) PTSD (post-traumatic stress disorder): Status: Acute (2) Alcohol abuse: Status: Acute (3) Alcohol withdrawal seizure: Status: Acute DS: Medications Discharge Medications Home Medications: Home Medications ?Medication ?Instructions ?Recorded ?Confirmed amitriptyline 10 mg tablet 10 mg PO BEDTIME 04/27/25 1 06/27/24 baclofen 10 mg tablet 10 mg PO TID 04/27/25 clonazepam 0.5 mg tablet (Klonopin) 0.5 mg PO DAILY NE N Anxiety 04/27/25 clonidine HCl 0.1 mg tablet 0.1 mg PO TID 04/27/2510/16 levetiracetam 500 mg tablet 500 mg PO BID 04/27/2510/16 oxcarbazepine 300 mg tablet 300 mg PO BID 04/27/2510/16 paroxetine HCl 30 mg tablet (Paxil) 30 mg PO DAILY 10/1604/27/25 quetiapine 100 mg tablet 100 mg PO DAILY 04/27/2510/16 quetiapine 400 mg tablet 400 mg PO BEDTIME 04/27/2506/27/24 topiramate 25 mg tablet 25 mg PO BID 04/27/25 Previous Rx's ?Medication ?Instructions ?Recorded diazepam 10 mg tablet (Valium) See Rx Instructions .[place] 04/30/25 .COMPLEX #22 tabs Mental Status Exam Mental Status Exam Narrative: Pt is alert and oriented; behavior is cooperative, friendly and calm on approach by staff however is otherwise making sexually inappropriate remarks to female peers and staff; patient is not in distress; dressed in casual attire with adequate hygiene; mood is described as good and affect congruent; eye contact appropriate; Speech is normal rate, volume and prosody and not pressured; no psychomotor agitation/retardation present; thought process is organized and goal directed; Thought content is on tx; otherwise pertinent to relevant topics and without any delusional content, paranoid ideations or grandiosity; denies any SI/HI. Denies AVH and there is no evidence of perceptual disturbance. Patients insight and judgment appear intact. Data Data Completed and Pending Completed studies during hospitalization [Text1]: 04/28/25 07:47 Estimat Average Glucose 97 Hemoglobin A1c % 5.0 Magnesium 1.9 Triglycerides 213 H Cholesterol 171 LDL Cholesterol, Calc 81 HDL Cholesterol 48 Vitamin B12 554 Folate 8.8 TSH 1.98 Free T4 0.81 DS: Summary Hospital Course Hospital Course: HPI: Patient is a 29 years old male with past hx of severe depression, anxiety, PTSD, and polysubstance, and alcohol use. Patent was drinking and was outside ED throwing objects at ambulances and going up to cars. Patient then brought to [facility] ED for evaluation. Presents with suicidal thoughts reported that he feels safe in the hospital and has not acting on SI. Reports SI has been going on for the past couple of weeks. Stating that it exacerbated prior to be brought in to ED when he left his mother's house. He reports taking more than prescribed Klonopin the night prior to arrival to try to help him with his withdrawal. Reports his last drink was the night before 04/25. Formulation/clinical reasoning: Increasing in stressors, being homeless, mother is ill, increasing alcohol consumption, depressed, anxious, agitated, easily frustrated, was given IMs in the ED, have increased SI. History of severe depression anxiety, but polysubstance use disorders. Given the above information, patient will be safe in restrictive environment, medication management, monitor for alcohol withdrawals, and refer patient to outpatient psychiatric services, or treatment program as a step-down for aftercare. Hospital course: 04/27/25: Patient is placed on CIWA protocol, with Ativan scheduled and p.r.n. for alcohol withdrawal. Will hold Klonopin 0.5 once daily p.r.n. as home medications. Patient is on multi medication to protect from seizure withdrawal. Trileptal 300 BID. Paxil 30mg daily. Also on gabapentin 300mg t.i.d.. Topamax 25 mg b.i.d. Rafiql 100 in the morning and 400 at bedtime. Baclofen 10 mg t.i.d. Clonidine 0.1 t.i.d. Keppra 300mg BID 04/28: Patient states that he feels like crap. He vomited after eating breakfast this morning. He has been shaking and feeling anxious, hot, and cold. He reports 10 anxiety and depression at this time. He denies SI/HI/AVH. His goal is to go to a [facility] program. He wants to be sober to return to his 7-year-old daughter. Current CIWA is 04/07/14. Clonazepam 0.5 mg daily as needed restarted. Stat dose of clonidine 0.1 mg ordered for elevated blood pressure. Calamine lotion prescribed for maculopapular rash to left forearm, likely related to poison rubio, reported by nursing. Continue current treatment regimen. Spoke with the patient patient psychiatric nurse practitioner who states that she has met with the patient twice and that Keppra 500 mg daily was started at [facility], in [place], in May 2024 for alcohol and cocaine withdrawal seizures, before she started seeing the patient. 04/29: Reports continued withdrawal symptoms, anxiety, and depression. No SI/HI/AVH. He called today and was he will have a bed Ready at [facility] next Saturday and therefore wants to be discharged to get ready for rehab. His CIWA today is 03/05/15. Will start tapering down p.r.n. Ativan by 2 mg daily. Total PRN Ativan today should be no more than 10 mg. Continue current treatment regimen. 04/30 ?Patient continued to make inappropriate remarks to female staff and peers over the past several days, not responding to redirection.? Today patient overheard by staff talking to a Estonian female peer about sucking his genitals; ?made sexually inappropriate remark to president of the [place], talking about her masturbating; followed female peer into the bathroom, made another inappropriate comment to another female peer who was on the phone with her boyfriend; talked to another female staff saying she would look good with ?her uniform off, asking to exchange phone numbers ?so she could talk Estonian to him and call him ?keely..? ? Once patient found out that staff was aware? that he made these comments to female peers, he started questioning each female peer saying which 1 of them t old staff? (no coincidence, he asked the very same female peers who had reported this to staff- and did not ask any peer he had not made a comment to) Draughtsman confronted patient who he initially denied it; however with further inquiry, he then? admitted the comments, saywilton g he gets ? horny when he is on Ativan?He also acknowledged other people he had been inappropriate to, ?including patient?s with which television writer was not aware.? He apologized ?to television writer and ?accepted he was being discharged;said he hopes he could still into program from home.? Draughtsman discussed who was being discharged with diazepam taper which patient fully understood. ?Patient agreed to self present to an emergency room if he started to get confused or felt his withdrawal symptoms could not be controlled by current diazepam taper. It is worth noting that several of patient's withdrawal symptoms were only present during specific staff inquiry and otherwise, patient was observed by multiple staff, including this television writer to be without any overt withdrawal symptoms including hand tremors which again were only present when nursing staff was assessing for CIWA; outside of these assessments patient was observed comfortably interacting with peers in the milieu. Patient said he plans to go stay at his mother?s and continue to try to get into the specific program.? Patient ?was fully organized in speech and behavior; he? is not manic and he is not psychotic. ??Patient denied any SI? today and consistently over the past several days; as mentioned patient remained future oriented saying he still wants to pursue sobriety because he has a 7-year-old daughter. Patient fully understood what he did was bothering people and understood that it was inappropriate.? Patient?s mother was not surprised he was being discharged.? Patient had an adequate supply of all his home medications which he had brought with him to this hospitalization and were being returned to him on discharge.?Of note, patient had a 3 day notice submitted and plan to discharge on his own if he did not get into a detox program. Patient was not in imminent risk of harm to self or others and other than still having withdrawal symptoms, he had returned to baseline. As patient was psychiatrically stable, had he been accepted to a detox program today, he would have been discharged to that program. Draughtsman discussed case with nursing garbage collection supervisor; also discussed with department head college or university Dr. Bass who agreed with plan for discharge agreed that diazepam taper was adequate. Patient is at baseline. Patient does not require inpatient level of care. He is acting inappropriately and interfering with the treatment of numerous other female peers. Patient is appropriate to return to the community for treatment and accepts being discharged. Status at Discharge Functional status at discharge: independent ambulation Overall status at discharge: patient is back to baseline Time Spent with Patient Time attestation: Total time managing care of this patient today __50_ minutes. Time spent: Greater than 30 minutes Specific discharge activities: Met with staff; discussed with team; discussed with Dr. Bass; charting; prescriptions Discharge Plan Discharge Anticipated Discharge Date/Time: 04/30/25 12:18 Patient Disposition: Home, Self-Care Discharge Diagnosis: PTSD; alcohol withdrawal Referrals: [facility] [Other] - 1 Week Referral Note: A referral was placed on your behalf. Please call daily to inquire about bed availability. [facility] [Other] - 1 Week Referral Note: A referral was placed on your behalf. Please follow up daily to inquire about acceptance and bed availability. [facility] [Other] - 05/05/25 1:00 pm Referral Note: Follow up therapy appointment with Jonatan Marroquin [facility] [Other] - 05/07/25 1:00 pm Referral Note: Follow-up medication management appointment with Bhaskar Fisher Physician,Unknown J [Primary Care Provider, Medical] - 1 Week Discharge Medications: New diazepam [Valium] 10 mg tablet See Rx Instructions .ROUTE .COMPLEX Qty: 22 0RF Rx Instructions: take 1 tab 4x a day for 2 days then...take 1 tab 3x a day for 2 days then...take 1 tab 2x a day for 3 days then...take 1 tab daily for 2 days Continued clonidine HCl 0.1 mg Tablet 0.1 mg PO TID Patient Comments: last filled 04/20/2025 Rx Instructions: [facility] [place] levetiracetam 500 mg Tablet 500 mg PO BID Patient Comments: last filled 04/06/2025 Rx Instructions: [facility] [place] clonazepam [Klonopin] 0.5 mg Tablet 0.5 mg PO DAILY PRN (Reason: Anxiety) Patient Comments: last filled 04/23/2025 Rx Instructions: [facility] topiramate 25 mg Tablet 25 mg PO BID Patient Comments: last filled 04/06/2025 Rx Instructions: [facility] oxcarbazepine 300 mg Tablet 300 mg PO BID Patient Comments: last filled 04/06/25 Rx Instructions: [facility] quetiapine 100 mg Tablet 100 mg PO DAILY Patient Comments: [facility] Rx Instructions: last filled 04/06/2025 amitriptyline 10 mg Tablet 10 mg PO BEDTIME Patient Comments: last filled 04/06/2025 Rx Instructions: [facility] baclofen 10 mg Tablet 10 mg PO TID Patient Comments: last filled 04/06/2025 Rx Instructions: [facility] paroxetine HCl [Paxil] 30 mg Tablet 30 mg PO DAILY Patient Comments: last filled at [facility] 04/07/2025 Rx Instructions: [facility] quetiapine 400 mg Tablet 400 mg PO BEDTIME Patient Comments: last filled 04/10/2025 Rx Instructions: [facility] Discharge Orders: Discharge Order (Routine); Ordered 04/30/25 Ordered By: Stevan Cintron Diet: Regular diet Activity on Discharge: As tolerated Stand Alone Forms: Patient Portal Discharge page, Community Support Print Language: Sami Care Plan Goals: Maintain mood and safe behaviors Take medications as prescribed Continue to pursue sobriety Practice coping skills Continue with outpatient providers and reach out to them as needed Health Concerns: Mood stability and behaviors Sobriety detox from Alcohol: You are being discharged with Diazepam to complete your detox from alcohol. take Diazepam 10mg ( 1 tab) 4x a day for 2 days then...take 1 tab 3x a day for 2 days then...take 1 tab 2x a day for 3 days then...take 1 tab daily for 2 days Plan of Treatment: Follow up with your PCP, psychiatric provider and other outpatient providers regarding above concerns Take medications as prescribed Assessment: Risk assessment at time of discharge:? Patient was interviewed prior to discharge and found to be fully oriented and without any SI or HI. Patient is not in imminent risk of harm to self or others and has a safety plan that includes presenting to the closest ER or calling 911 if feeling unsafe.? Discharge Date/Time: 04/30/25 12:25
== END 2025-04-30 12:25 | disposition home or self-care (01) | DRG 755 ==
PROVIDERS: Clinical Nurse Specialist Psychiatric/Mental Health, Adult; Admitting Provider Psychiatry & Neurology Psychiatry; Visit Provider Psychiatry & Neurology Psychiatry
DX: F43.10 Post-traumatic stress disorder, unspecified (principal); R45.851 Suicidal ideations; F10.139 Alcohol abuse with withdrawal, unspecified; I10 Essential (primary) hypertension; F17.210 Nicotine dependence, cigarettes, uncomplicated; Z71.6 Tobacco abuse counseling; Z79.899 Other long term (current) drug therapy
CPT/HCPCS: 36415; 80061; 82607; 82746; 83036; 83735; 84439; 84443

== ENCOUNTER → 2025-04-27 14:46 | Outpatient (BNV) | payer MEDICAID, SELFPAY | PROVIDERS: Admitting Provider Psychiatry & Neurology Psychiatry; Visit Provider Nurse Practitioner Family | DX: I10 Essential (primary) hypertension (principal) | CPT/HCPCS: 99221 ==

== ENCOUNTER → 2025-04-27 14:46 | Outpatient (BNV) | payer OTHER, SELFPAY | PROVIDERS: Admitting Provider Psychiatry & Neurology Psychiatry; Visit Provider Nurse Practitioner Family | DX: F10.939 Alcohol use, unspecified with withdrawal, unspecified (principal); R56.9 Unspecified convulsions; F43.10 Post-traumatic stress disorder, unspecified | CPT/HCPCS: 99232; 99233; 99499 ==